=== PATIENT | female | born 1935 | race African-American/Black ===

== ENCOUNTER 2018-11-22 23:54 | Emergency (ER) | payer MEDICARE, SELFPAY ==
[2018-11-22 23:55] VITALS: BP 197/104; PULSE 75; RESP 22; TEMP 36.4; O2SAT 97; BMI 26.2
--- NOTE | 2018-11-22 23:57 | ED.RN ---
CALLED FOR EKG PER RN REQUEST, PULLED OLD EKGS FOR
--- NOTE | 2018-11-23 00:17 | EKG12_ITS ---
Test Reason : CP Blood Pressure : / mmHG Vent. Rate : 067 BPM Atrial Rate : 067 BPM P-R Int : 132 ms QRS Dur : 082 ms QT Int : 400 ms P-R-T Axes : 072 054 078 degrees QTc Int : 422 ms Normal sinus rhythm Possible Left atrial enlargement Septal infarct , age undetermined Abnormal ECG Confirmed by AVE BONILLA, CHRIS ([id number]), publications editor BALDO BERGMAN ([id number]) on 11/26/2018 6:22:34 AM Referred By: GRACE Confirmed By:CHRIS DORADO MD
--- NOTE | 2018-11-23 00:17 | RAD_ITS ---
HISTORY: CHEST PAIN FOR THE LAST TWO DAYS, INTRACTIBLE BURPING SINCE DINNER TIME EXAM: XR Chest 2 Views: COMPARISON: February 15, 2015 FINDINGS: # of images incl. paperwork: 2 Left IJ central venous catheter port has been removed. Calcific plaque within the aortic arch persists. Right paratracheal calcified granulomatous disease in lymph nodes is much more prominent on the current study. Some right upper lung benign calcified granulomas are more prominent. Pulmonary hyperexpansion remains. Lungs are clear. Heart is not enlarged. Bones are normal. Pulmonary vascularity is distinct. No effusions. RAD/Chest PA and Lateral IMPRESSION: No acute cardiopulmonary disease perceived. at 0156 Reported and signed by: Michele Schumacher MD Electronically Signed: Michele Schumacher MD at 1:55 EDT Tel , Service support ,
--- NOTE | 2018-11-23 00:17 | CT_ITS ---
HISTORY: CP X 2 DAY WITH BURPING, HX COLON CA, HTN, EMPHYSEMA TECHNIQUE: Helically acquired images were obtained of the abdomen and pelvis without oral or IV contrast. A radiation dose optimization technique was used for this scan. COMPARISON: None FINDINGS: # of images incl. paperwork: 437 LUNG BASES: Within the posterior medial aspect of the right lower lobe there is a bronchus that becomes suddenly occluded with soft tissue, likely fluid. There is some focal atelectasis and consolidation within the posterior medial right lower lobe peripheral to the occluded bronchus. Minimal scarring within the lingula and right middle lobe. Tiny pericardial effusion. Atherosclerotic plaque within a tortuous thoracic aorta CT abdomen: Bone island within the right hemisacrum Facet arthropathy and degenerative disc disease in lower lumbar spine. Bone island within the right ischial tuberosity. Bone island within the left and right acetabulum.. The gallbladder remains. Liver, spleen, pancreas, are normal. Slightly thickened and homogeneously enlarged adrenal glands The left kidney is normal. No nephrolithiasis or hydronephrosis. No ureteric stones. Left nephrolithiasis. Prominent left extrarenal collecting system. No left hydroureter. No left renal stones perceived.. The aorta is disease with atherosclerotic plaque without aneurysm. Is atherosclerotic plaque continues into the common iliac arteries. There is no intra-or extrahepatic biliary ductal dilatation. CT pelvis: No ascites is present. The uterus is atrophic.. The appendix has been resected. The bladder is mostly decompressed. Resection of the ascending colon with 3 anastomosis of the small bowel to the colon within the region of the hepatic flexure. Diverticulosis is mild. No evidence of diverticulitis. CT/Abdomen/Pelvis without Cont IMPRESSION: Atherosclerotic disease. Ascending colon resection. Nonobstructing left nephrolith with a prominent left extrarenal pelvis, without hydroureter or ureteric stone Prominent bilateral adrenal glands. This could be due to adrenal cortical insufficiency and adrenal hyperplasia. On this noncontrasted study, I see no evidence of metastatic disease to the liver. Individualized dose optimization techniques were used for this CT. at 0147 Reported and signed by: Michele Schumacher MD Electronically Signed: Michele Schumacher MD at 1:46 EDT Tel , Service support ,
--- NOTE | 2018-11-23 00:19 | ED.VIS.GEN ---
History of Present Illness Chief Complaint: Chest Pain Narrative: Patient is an 83-year-old female who presents with chief complaint of chest pain. She states she is been feeling it all week. She describes it as pressure-like. She rates it at 8 out of 10. It is under the left breast. She also reports excessive eructation. She reports shortness of breath with exertion such as walking up stairs only. She is not short of breath at rest. She also had some pain in her right arm. No nausea or vomiting. She is having normal bowel movements. She does have a history of colon cancer with prior partial colectomy. No history of coronary disease. She is treated for hypertension but denies diabetes or hyperlipidemia. No history of prior similar symptoms. Past Medical History - Allergies and Home Meds Allergies/Adverse Reactions: Allergies lisinopril Adverse Reaction (Verified 02/14/15 09:31) Other PERSISTANT COUGH Primary Care Physician: Grady Salmeron MD [NON-STAFF] - Past Medical History: - - Hypertension, colon cancer Surgical History: - - Tubal ligation., Partial colectomy Smoking Status: Former smoker Review of Systems All systems negative except as indicated General: Denies: Fever Cardiovascular: Reports: Chest pain Respiratory: Reports: Dyspnea Gastrointestinal: Reports: Abdominal pain. Denies: Nausea, Vomiting, Diarrhea Skin: Denies: Rash Neurological: Denies: Headache Physical Exam Vital Signs/Narrative: Vital Signs Temp Pulse Resp BP Pulse Ox 11/22/18 23:55 97.5 F L 75 22 H 197/104 H 97 General: Well nourished, Well developed Head: Normocephalic Eyes: Perrl, EOMI ENT: Moist mucous membranes Neck: Supple Cardiovascular: Regular rate, Regular rhythm Respiratory: No distress, CTA bilaterally Abdomen: Soft, Nontender, Nondistended Extremities: Nontender Skin: Normal color Neurological: Alert Psychological: Normal affect Diagnostic/Tx/Re-eval - Medical Decision Making EKG shows normal sinus rhythm at a rate of 67, no acute ischemic changes, unchanged from prior. Normal intervals. Normal axis. Laboratory studies including hepatic function, lipase, troponin all normal. Chest x-ray shows no acute process. CT of the abdomen and pelvis showed no acute process to explain the patient's symptoms. Given her description I suspect this is more likely related to a gastrointestinal pathology. Her pain is been constant for 1 week with an unchanged EKG and negative troponin. I doubt this is related to cardiac ischemia. Her heart score is 3. On further history she did note that her symptoms are often exacerbated by eating. She was given a GI cocktail here with some improvement of symptoms. We will start her on a proton pump inhibitor. She understands to return for new or worsening symptoms or if symptoms are not improving. I advised that she follow-up closely as an outpatient. Patient and family agreeable to this plan and the patient was discharged. ED Disposition - Plan for ED Patient: Referrals: Grady Salmeron MD [NON-STAFF] -
[2018-11-23] MEDS: Ondansetron ODT 4 MG Tablet PO (01:06)
[2018-11-23] MEDS: Morphine 4 MG/ML Syringe IV (01:06)
[2018-11-23 01:34] LABS: Absolute Lymphocyte Count 2.02 X10^3/ul (0.83-4.51); Absolute Neutrophil Count 1.7 X10^3/uL (2.0-7.7); Basophil# 0.01 X10^3/uL; Basophil% 0.2 % (0-1); Eosinophil# 0.06 X10^3/uL; Eosinophils% 1.5 % (0-5); Hematocrit 38.3 % (37-47); Hemoglobin 12.2 g/dl (12.0-15.0); Lymphocyte # 2.02 X10^3/ul (4.0); Mean Corp Hgb Conc 31.9 g/gl (32-36); Mean Corpuscular Hgb 23.6 pg (27.0-32.0); Mean Corpuscular Volume 74.1 fL (81-99); Mean Platelet Vol. 9.8 fl (6.2-12.0); Monocyte# 0.33 X10^3/uL; Neutrophil % 41.3 % (47-70); Platelet Count 176 K/mm3 (150-450); RBC Distribution Width CV 15.1 % (11.6-14.6); RBC Distribution Width SD 40.6 fl (35.1-43.9); Red Blood Count 5.17 M/mm3 (4.2-5.4); White Blood Count 4.1 K/mm3 (4.4-11.0)
[2018-11-23 01:37] LABS: Differential Indicated SCAN CRITERIA MET; POSITIVE COUNT YES; POSITIVE DIFFERENTIAL NO; POSITIVE MORPHOLOGY NO
[2018-11-23 01:47] LABS: ALB/GLOB Ratio 1.1 RATIO (0.9-2.4); AST(SGOT) 13 U/L (15-37); Alanine Aminotransfer ALT/SGPT 16 U/L (13-56); Albumin, Serum 3.9 g/dL (3.2-5.0); Alkaline Phosphatase 91 U/L (45-117); Anion Gap 8 (5-15); BUN 30 mg/dL (7-18); BUN/Creat Ratio 26.1 RATIO (10-20); Calcium,Total 8.8 mg/dL (8.5-10.1); Chloride 108 mmol/L (98-107); Creatinine, Serum 1.15 mg/dL (0.55-1.02); EST Glomerular Filtration Rate 48 mL/min (>60); Est Glom Filt Rate - Afr Amer 58 mL/min (>60); Globulin 3.6 g/dL (2.2-4.2); Glucose 82 mg/dL (74-106); Lipase 111 U/L (73-393); Potassium 3.7 mmol/L (3.5-5.1); Protein, Total 7.5 g/dL (6.4-8.2); Sodium Level 141 mmol/L (136-145)
[2018-11-23 01:53] LABS: Anisocytosis RARE; Microcytosis RARE; Platelet Estimate ADEQUATE (ADEQ); Platelet Morphology LARGE
[2018-11-23 02:02] VITALS: PULSE 61; RESP 12; O2SAT 98
[2018-11-23] MEDS: Mag Hydrox/Al Hydrox/Simeth 30 ML UDC PO (02:13)
--- NOTE | 2018-11-23 02:28 | DCINST.ED_ITS ---
ED Disposition - Plan for ED Patient: Disposition: [facility] Diagnosis: LUQ abdominal pain Instructions: ED Chest Pain Atypical Unkn Cause, ED Abdominal Pain Unkn Cause Prescriptions: Omeprazole [Prilosec] 20 mg PO DAILY #30 cap Referrals: Grady Salmeron MD [NON-STAFF] -
[2018-11-23 02:41] VITALS: BP 183/89; PULSE 61; RESP 20; O2SAT 98
== END 2018-11-23 02:43 | disposition home or self-care (01) ==
PROVIDERS: Emergency Provider Emergency Medicine; Family Provider Family Medicine; PCP Family Medicine
DX: R10.12 Left upper quadrant pain (principal); I10 Essential (primary) hypertension; Z90.49 Acquired absence of other specified parts of digestive tract; Z85.038 Personal history of other malignant neoplasm of large intestine; Z87.891 Personal history of nicotine dependence; Z79.899 Other long term (current) drug therapy
CPT/HCPCS: 71046; 74176; 80053; 83690; 84484; 85025; 93005; 96374; 99285; A4216

== ENCOUNTER → 2020-04-06 18:44 | Emergency (ER) | payer MEDICARE, SELFPAY ==
[2020-04-06 18:45] VITALS: BP 199/107; PULSE 70; RESP 18; TEMP 36.7; BMI 29.2
--- NOTE | 2020-04-06 19:04 | EKG12_ITS ---
Test Reason : CP Blood Pressure : / mmHG Vent. Rate : 086 BPM Atrial Rate : 086 BPM P-R Int : 158 ms QRS Dur : 078 ms QT Int : 416 ms P-R-T Axes : 074 053 081 degrees QTc Int : 497 ms Normal sinus rhythm Minimal voltage criteria for LVH, may be normal variant Prolonged QT Abnormal ECG Confirmed by HOLLY BONILLA, JESSICA ([id number]), map editor MATY CARNEY ([id number]) on 04/20/2020 9:46:14 A M Referred By: HAZEL Confirmed By:DORITA BARRERA MD
[2020-04-06] MEDS: Morphine 4 MG/ML Syringe IV (19:24)
[2020-04-06] MEDS: Ondansetron 4 MG/2 ML Vial IV (19:24)
--- NOTE | 2020-04-06 19:40 | RAD_ITS ---
STUDY: X-RAY CHEST REASON FOR EXAM: Female, 85 years old. LEFT SIDED CHEST PAIN TECHNIQUE: Frontal and lateral views COMPARISON: 2018. FINDINGS: The lungs are hyperaerated. Probable scarring in the right lower lobe. Normal size heart. Normal mediastinum and yolanda. Normal visualized pulmonary arteries. Calcified aortic arch and descending thoracic aorta. Normal visualized thoracic spine. Normal visualized ribs, clavicles, and shoulders. There is no demonstrated abnormality of the visualized soft tissue structures of the upper abdomen. RAD/Chest PA and Lateral IMPRESSION: Hyperaeration. Probable right lower lobe scarring. Electronically Signed: Avinash Singh DO at 20:00 EDT Tel [phone], Service support ,
[2020-04-06 19:43] LABS: Absolute Lymphocyte Count 2.08 X10^3/uL (0.83-4.51); Absolute Neutrophil Count 1.6 X10^3/uL (2.0-7.7); Basophil# 0.01 X10^3/uL; Basophil% 0.2 % (0-1); Eosinophil# 0.04 X10^3/uL; Hematocrit 41.6 % (37-47); Hemoglobin 12.6 g/dL (12.0-15.0); Lymphocyte # 2.08 X10^3/ul (4.0); Lymphocyte % 51.5 % (19-41); Mean Corp Hgb Conc 30.3 g/dL (32-36); Mean Corpuscular Volume 75.9 fL (81-99); Mean Platelet Vol. 10.7 fl (6.2-12.0); Monocyte# 0.26 X10^3/uL; Monocyte% 6.4 % (0-10); NRBC Flagged by Analyzer 0 % (0-5); Neutrophil # 1.64 X10^3/uL (2.7-7.7); Neutrophil % 40.7 % (47-70); Platelet Count 224 K/mm3 (150-450); RBC Distribution Width CV 15.1 % (11.6-14.6); RBC Distribution Width SD 41.2 fl (35.1-43.9); Red Blood Count 5.48 M/mm3 (4.2-5.4)
--- NOTE | 2020-04-06 19:56 | ED.DCSUM_ITS ---
History of Present Illness Chief Complaint: Chest Pain Informant: Patient, Significant Other Onset: Today, Hours Context: Sudden Onset Timing: Continuous, Waxes and wanes Quality: Pain with pleuritic component Location: Left-sided chest under breast Current Severity: Mild Maximum Severity: Severe Worsened by: Breathing and palpation and movement Relieved by: Nothing Associated Symptoms: Shortness of breath no other symptoms Narrative: Patient is an elderly woman who presents with acute onset of left-sided chest pain with pleuritic component. Pain got worse several hours prior to presentation. She denies history of VTE. She denies leg pain, swelling discoloration. She denies any recent infectious symptoms and specifically upper respiratory symptoms. She denies rhinorrhea, congestion or postnasal drainage. Denies throat pain. Denies ringing in ears, decreased hearing or drainage from ears. She denies cough. She does report shortness of breath. She does have dyspnea on exertion. She denies orthopnea or PND. She denies nausea, vomiting diarrhea. Denies black or maroon stool. She denies any other symptoms. Prior similar symptoms: No Recent Illness/Hospitalization: No - Past Medical History (1) History of hypertension Status: Acute Past Medical History - Allergies and Home Meds Allergies/Adverse Reactions: Allergies lisinopril Adverse Reaction (Verified 04/06/20 18:54) Other PERSISTANT COUGH Primary Care Physician: Joel Beckman MD [Primary Care Provider] - Prior records reviewed: Yes Surgical History: - - Tubal ligation., Partial colectomy Lives: Spouse/ Significant Other Smoking Status: Former smoker Alcohol: None Drugs: None Review of Systems General: Denies: Chills, Fever, Malaise, Subjective, Sweats, Weight loss ENT: Denies: Rhinorrhea, Sore throat Cardiovascular: Reports: Chest pain. Denies: Palpitations, Heart racing, -, - Respiratory: Reports: Dyspnea, Dyspnea on exertion. Denies: Cough, Sputum, Orthopnea, Paroxysmal nocturnal dyspnea, -, - Gastrointestinal: Denies: Abdominal pain, Nausea, Vomiting, Diarrhea, Melena, Hematochezia Genitourinary: Denies: Dysuria, Hematuria, Frequency Musculoskeletal: Denies: Myalgias, Arthralgias, Neck pain, Back pain, Swelling, Extremity Pain Skin: Denies: Rash, Wounds Neurological: Denies: Headache, Weakness, Numbness Endocrine: Denies: Polyuria, Polydipsia Hematologic: Denies: Easy bruising, Easy bleeding Allergy: Denies: Uticaria Physical Exam Vital Signs/Narrative: Vital Signs Temp Pulse Resp BP 04/06/20 18:45 98.0 F 70 18 199/107 H Inital Vital Signs reviewed: Yes General: Well nourished, Well developed, Acute Distress Head: Normocephalic, Atraumatic Eyes: Perrl, EOMI. Negative for: Pale conjunctiva, Scleral icterus ENT: No rhinorrhea, TM's clear. Negative for: Nasal congestion, Sinus tenderness Neck: Supple, Nontender, No lymphadenopathy, No JVD Cardiovascular: Regular rate Respiratory: No distress, CTA bilaterally, Chest tenderness - Patient does have a painful patient under left breast. There is no crepitus subcutaneous air. There is no rash or lesions to suggest herpes varicella-zoster. Abdomen: Soft, Nontender, Nondistended, Normal bowel sounds, No masses Rectal: Deferred Back: Nontender, Normal Inspection Extremities: Nontender, No edema, - - There is no asymmetry, swelling, discoloration, leg vein distention, palpable cords or tenderness along the distribution of the deep venous system. Skin: Normal color, No rash Neurological: Alert, Oriented x3, Cranial nerves II-XII grossly intact, Normal Strength, Normal Sensation Psychological: Normal affect, Normal Mood Diagnostic/Tx/Re-eval Impressions Chest X-Ray 04/06/20 19:40 IMPRESSION: Hyperaeration. Probable right lower lobe scarring. Electronically Signed: Avinash Singh DO at 20:00 EDT Tel [phone], Service support , Chest CTA 04/06/20 21:16 IMPRESSION: No demonstrated pulmonary embolism or arterial dissection. Hyperaeration with emphysematous changes. Right lower lobe infiltrate. Interstitial prominence. Left renal stone. Pericardial thickening. Electronically Signed: Avinash Singh DO at 21:53 EDT Tel [phone], Service support , 04/06/20 19:40 Chest PA and Lateral [RAD] Stat 04/06/20 21:16 CTA Chest W/WO Contrast [CT] Stat Laboratory Results 04/06/20 04/06/20 04/06/20 19:35 19:35 19:35 WBC 4.0 L RBC 5.48 H Hgb 12.6 Hct 41.6 MCV 75.9 L MCH 23.0 L MCHC 30.3 L RDW Std Deviation 41.2 RDW Coeff of Aylin 15.1 H Plt Count 224 MPV 10.7 Immature Gran % (Auto) 0.200 Neut % (Auto) 40.7 L Lymph % (Auto) 51.5 H [place] % (Auto) 6.4 Eos % (Auto) 1.0 Baso % (Auto) 0.2 Absolute Neuts (auto) 1.6 L Absolute Lymphs (auto) 2.08 Nucleated RBC % 0 D-Dimer Quant (PE/DVT) 0.95 H* Sodium 139 Potassium 4.9 Chloride 109 H Carbon Dioxide 24.0 Anion Gap 6 BUN 26 H Creatinine 1.19 H Estim Creat Clear Calc 34.83 Est GFR (MDRD) Af Amer 56 L Est GFR (MDRD) Non-Af 46 L BUN/Creatinine Ratio 21.8 H Glucose 99 Calcium 9.0 Troponin I < 0.015 - EKG Initial EKG Interpretation: Sinus Rhythm - Sinus rhythm with a ventricular rate 86. VA interval 158. QRS duration 78 ms. QT duration 416 ms with a QTC of 497. [place] is normal. The QT is prolonged. There is evidence of LVH by voltage criteria. - Medical Decision Making Itchy, chest x-ray appropriate labs were obtained to rule out cardiac etiology versus noncardiac. Noncardiac etiology would include pulmonary embolus, pleurisy, pneumonia and pneumothorax. CT reveals infiltrate right lower lobe. This may represent Covid. Covid test was sent. Since vitals are normal and she is not hypoxic we will treat with Augmentin and azithromycin for community-acquired pneumonia and she was given a dose of Decadron. ED Disposition - Plan for ED Patient: Disposition: Home or Assisted Living Diagnosis: Infiltrate of lower lobe of right lung present on imaging study, Pleurisy, Suspected 2019 novel coronavirus infection Instructions: ED PNEUMONITIS Adult, ED Chest Pain Pleurisy Prescriptions: Amox/Clavulanate Tablet [Augmentin Tablet] 875 mg PO Q12H #14 tab Prescription Printed Azithromycin [Zithromax Z-Sven] 250 mg PO UD #1 box Prescription Printed Referrals: Joel Beckman MD [Primary Care Provider] - 3-5 Days if not improving
[2020-04-06 20:04] VITALS: BP 199/98; PULSE 60; RESP 15; O2SAT 100
[2020-04-06 20:04] LABS: Anion Gap 6 (5-15); BUN 26 mg/dL (7-18); BUN/Creat Ratio 21.8 RATIO (10-20); Chloride 109 mmol/L (98-107); Creatinine, Serum 1.19 mg/dL (0.55-1.02); EST Glomerular Filtration Rate 46 mL/min (>60); Est Glom Filt Rate - Afr Amer 56 mL/min (>60); Estimated Creatinine Clearance 34.83 ml/min; Glucose 99 mg/dL (74-106); Potassium 4.9 mmol/L (3.5-5.1); Sodium Level 139 mmol/L (136-145)
[2020-04-06 20:05] LABS: D-Dimer Quantitative (DVT/PE) 0.95 FEU/ug/m (0.27-0.49)
[2020-04-06 21:10] VITALS: BP 196/95; PULSE 88; RESP 18; O2SAT 100
--- NOTE | 2020-04-06 21:16 | CT_ITS ---
STUDY: CTA CHEST REASON FOR EXAM: Female, 85 years old. CHEST PAIN UNDER LEFT BREAST ALL DAY. HX OF COLON CA. PT STATES SHE HAS A LUNG MASS RADIATION DOSAGE (If Supplied By Facility): CTDIvol = ( 10.95 ) mGy, DLP = ( 353.72 ) mGycm TECHNIQUE: The examination was performed with the intravenous administration of IV 100mL Isovue-370. Post-processing of the angiographic images was performed, with multiplanar reformation and 3D reconstruction. Individualized dose optimization techniques were used for this CT. COMPARISON: 11/23/2018 FINDINGS: Normal enhancement of the main pulmonary artery and right and left pulmonary arteries. Normal enhancement of the bilateral peripheral pulmonary arteries. There is no demonstrated pulmonary embolism. Calcified thoracic aorta and visualized great vessels. There is no demonstrated aortic dissection. Mild pericardial thickening. Normal mediastinum. Normal hilar regions. Normal visualized trachea and bronchi. The lungs are hyperaerated with emphysematous changes. Mild interstitial prominence. Right lower lobe infiltrate. Normal pleura. Normal chest wall structures. Normal osseous structures. 2 mm left renal stone. CT/CTA Chest W/WO Contrast IMPRESSION: No demonstrated pulmonary embolism or arterial dissection. Hyperaeration with emphysematous changes. Right lower lobe infiltrate. Interstitial prominence. Left renal stone. Pericardial thickening. Electronically Signed: Avinash Singh DO at 21:53 EDT Tel [phone], Service support ,
[2020-04-06] MEDS: Amox/Clavulanate 875 MG Tablet PO (22:29)
[2020-04-06] MEDS: Azithromycin 250 MG Tablet 500 MG PO (22:30)
[2020-04-06] MEDS: dexAMETHasone 4 MG Tablet 8 MG PO (22:30)
== END | disposition home or self-care (01) ==
LOC: ED 19:59
PROVIDERS: Emergency Provider Emergency Medicine; PCP Family Medicine
DX: R09.1 Pleurisy (principal); I10 Essential (primary) hypertension; Z87.891 Personal history of nicotine dependence; Z79.82 Long term (current) use of aspirin
CPT/HCPCS: 71046; 71275; 80048; 84484; 85025; 85379; 87635; 93005; 96374; 96375; 99281; 99285; Q9967; A4216; J2405; U0003

== ENCOUNTER 2022-11-14 06:01 | Inpatient (IN) | payer MEDICARE, SELFPAY ==
[2022-11-14] VITALS (10 sets, daily range): BP systolic 105–161; BP diastolic 66–92; PULSE 73–104; RESP 18–24; TEMP 36.6–38.3; O2SAT 91–99; BMI 29.4; BMI 28.1
--- NOTE | 2022-11-14 06:10 | EKG12_ITS ---
Test Reason : CP Blood Pressure : / mmHG Vent. Rate : 096 BPM Atrial Rate : 096 BPM P-R Int : 128 ms QRS Dur : 072 ms QT Int : 344 ms P-R-T Axes : 074 070 075 degrees QTc Int : 434 ms Normal sinus rhythm Nonspecific ST abnormality Abnormal ECG Confirmed by GIANCARLO BONILLA, THIEN ([id number]), medical transcription editor MATY CARNEY ([id number]) on 11/18/2022 10:32:01 AM Referred By: ALYSE Confirmed By:THIEN MONDRAGON MD
--- NOTE | 2022-11-14 06:12 | ED.VIS.CHEST ---
HPI History of Present Illness Chief Complaint: Chest Pain Informant: patient Onset/Context/Timing Onset: Days (2 days) Activity at onset: gradual Timing: Waxes and wanes Quality: Positive for Pain Location: Left Chest Current Severity: Mild Maximum Severity: Moderate Worsened By: Movement of Torso and Palpation Narrative Narrative: Patient presents secondary to left-sided chest pain. She is been having pain for the past 2 days and it waxes and wanes. She denies any injury or change in activity prior to onset. She describes the area of pain is just under her left breast over the anterior lower ribs. She states pain is worse when she moves. She does not feel short of breath. She states she has had similar pain in the past and was told it was gas pains. She tried taking some gas pills without improvement. She states she finally called 911 this morning because she could not get the pain to go away. She did not take any medication prior to arrival. [facility] Medical History History of hypertension Home Medications multivitamin with folic acid 400 mcg tablet (Thera) 1 tab PO DAILY 05/12/13 [History Last Taken 05/11/13] amlodipine 5 mg tablet 5 mg PO DAILY 02/14/15 [History Last Taken 02/15/15 07:00] aspirin 81 mg tablet,delayed release 81 mg PO DAILY@0800 02/14/15 [History Last Taken Unknown] loratadine 10 mg tablet (Allergy Relief (loratadine)) 10 mg PO DAILY 02/14/15 [History Last Taken Unknown] omeprazole 20 mg capsule,delayed release 20 mg PO DAILY #30 caps 11/23/18 [Rx Last Taken Unknown] amoxicillin 875 mg-potassium clavulanate 125 mg tablet 875 mg PO Q12H #14 tabs 04/06/20 [Rx Last Taken Unknown] azithromycin 250 mg tablet 250 mg PO UD ##1 04/06/20 [Rx Last Taken Unknown] Allergy/AdvReac Type Severity Reaction Status Date / Time lisinopril AdvReac Other Verified 11/14/22 06:10 Social History Smoking Status: Former smoker ROS ROS ED Constitutional Constitutional ED: Denies chills or fever(s) Eyes Eyes: Denies change in vision or discharge from eye(s) ENT ENT ED: Denies discharge from eye(s), rhinorrhea or sore throat Cardiovascular Cardiovascular: Reports chest pain; Denies palpitations Respiratory/Chest Respiratory/Chest: Denies cough or dyspnea Gastrointestinal Gastrointestinal: Denies abdominal pain, nausea or vomiting Genitourinary Genitourinary ED: Denies dysuria Musculoskeletal Musculoskeletal: Denies back pain or extremity pain Integumentary Denies Abrasions or rash Neurologic Neurologic: Denies headache(s) or weakness Allergic/Immunologic Allergic/Immunologic ED: Denies lip swelling or urticaria EXAM Physical Exam Const Vital Signs: 11/14/22 06:05 11/14/22 06:08 11/14/22 06:42 Temperature 98.2 F Temperature Source Temporal Pulse Rate 97 Respiratory Rate 24 H Respiratory Effort Normal Blood Pressure 161/92 H Blood Pressure Mean 115 Pulse Ox 93 Oxygen Delivery Method Room Air Room Air Positive well nourished and well developed General Appearance ED: well developed HEENT Reports normocephalic and head/scalp atraumatic Eyes PERRL and EOMs intact bilaterally Neck supple Chest Wall inspection of chest normal Chest Narrative: Reproducible chest wall pain with palpation over the left anterior lower ribs. No crepitus. Resp normal respiratory effort and clear to auscultation bilaterally Cardio regular rate and regular rhythm GI normal to inspection, nondistended, normoactive bowel sounds Palpation: soft Extremity normal to inspection Neuro oriented x3 and no sensory deficits noted Sensorium / Orientation: alert Motor Exam: strength 5/5 throughout Psych mental status grossly normal Skin no rashes or lesions noted Heart Score History: Slightly/Non-Suspicious ECG: Normal Age: >/= 65 years Risk Factors: 1 or 2 Risk Factors Troponin: >/=3 x Normal Limit Score: 5 MDM MDM MDM Narrative Medical decision making narrative: Patient given aspirin on arrival. She is also given Tylenol and a Lidoderm patch as her pain seems to be musculoskeletal in nature. She is placed on monitoring tech. EKG obtained to evaluate for cardiac arrhythmia/ischemia. Chest x-ray obtained to evaluate for acute lung pathology, cardiac size, or mediastinal abnormality. Labwork obtained to evaluate for leukocytosis, anemia, and electrolyte derangement. History & Record Review Discussion w/independent historian: EMS personnel Lab Data Attestation: I reviewed the patient's lab results. Labs: Laboratory Results - last 24 hr 11/14/22 11/14/22 06:37 06:37 WBC 8.3 RBC 5.26 Hgb 12.0 Hct 39.3 MCV 74.7 L MCH 22.8 L MCHC 30.5 L RDW Std Deviation 40.2 RDW Coeff of Aylin 14.9 H Plt Count 123 L MPV 11.6 Immature Gran % (Auto) 0.600 Neut % (Auto) 83.4 H Lymph % (Auto) 9.0 L Fisher % (Auto) 6.6 Eos % (Auto) 0.0 Baso % (Auto) 0.4 Absolute Neuts (auto) 6.9 Absolute Lymphs (auto) 0.75 L Nucleated RBC % 0 Differential Comment SCANNED Platelet Estimate SLT DEC Sodium 132 L Potassium 4.4 Chloride 103 Carbon Dioxide 19.0 L Anion Gap 10 BUN 20 H Creatinine 1.38 H Estim Creat Clear Calc 30.07 Est GFR (MDRD) Af Amer 47 L Est GFR (MDRD) Non-Af 39 L BUN/Creatinine Ratio 14.5 Glucose 118 H Calcium 8.9 Troponin I High Sens 418 H* Radiography Chest X-Ray - ED: 1 View, Read by ED Physician and - (Wedge-shaped density along the left lateral lung. This appears new when compared to prior study.) Diagnostic Testing: Clinical Impression(s) from Imaging Studies Chest X-Ray 11/14/22 06:45 IMPRESSION: 1. Moderate wedge-shaped juxtapleural parenchymal opacity in the left lateral mid lung at the level of of the hilum, new since November 14, 2022. Considerations include infarct, pneumonia and mass. 2. Enhanced chest CT is recommended for further evaluation. Consider PE protocol CTA if it is thought to be indicated. 3. Previously seen linear irregular opacity in the right medial lower lung field is similar to April 06, 2020, there was increased opacity around bronchovascular structures on the prior CT exam the same day. Electronically Signed: Yani Kramer MD at 7:15 EDT , ADDENDUM: 11/14/22 8770 IMPRESSION: 1. Moderate wedge-shaped juxtapleural parenchymal opacity in the left lateral mid lung at the level of of the hilum, new since November 14, 2022. Considerations include infarct, pneumonia and mass. 2. Enhanced chest CT is recommended for further evaluation. Consider PE protocol CTA if it is thought to be indicated. 3. Previously seen linear irregular opacity in the right medial lower lung field is similar to April 06, 2020, there was increased opacity around bronchovascular structures on the prior CT exam the same day. N.B. : The above Results were Read Back by Yani Kramer MD to Amy Simpson MD, and understanding confirmed on 11/14/2022 07:23:16 (ET). Electronically Signed: Yani Kramer MD at 7:15 EDT , EKG Initial EKG: Attestation: I personally reviewed and interpreted this EKG as follows: Interpretation: Sinus Rhythm (Sinus at [address] depression in lead V5 and V6.) Treatment and Re-Evaluation :: On repeat evaluation patient is resting comfortably. She denies chest pain at this time. CBC reveals normal white count and differential. Hemoglobin is normal at 12. Chemistry studies reveal a BUN of 20 and a creatinine of 1.38. Troponin is elevated at 418. Chest x-ray per my interpretation reveals a wedge-shaped density along the lateral left chest wall. Radiology interpretation is reviewed. Patient sent for CTA of the chest. 2-hour repeat troponin will be ordered. Patient be signed out to oncoming physician pending CT results and hospital admission. Discharge Plan Triage Chief Complaint: Chest Pain ED Provider: Amy Simpson Dx/Rx/DC Orders Clinical Impression: Non-ST elevation [place] (NSTEMI) Prescriptions: No Action multivitamin with folic acid [Thera] 1 TABLET tablet 1 tab PO DAILY Label Comments: MINERAL SUPPLEMENT amlodipine 5 MG tablet 5 mg PO DAILY aspirin 81 MG tablet 81 mg PO DAILY@0800 loratadine [Allergy Relief (loratadine)] 10 MG tablet 10 mg PO DAILY omeprazole 20 MG capsule 20 mg PO DAILY Qty: 30 0RF azithromycin 250 MG tablet 250 mg PO UD Qty: 1 0RF Rx Instructions: TAKE 2 TABLETS 1ST DAY THEN 1 TABLET DAILY FOR NEXT 4 DAYS. amoxicillin-pot clavulanate 875 MG tablet 875 mg PO Q12H Qty: 14 0RF Primary Care Provider: Joel Beckman Referrals: Joel Beckman MD [Primary Care Provider] - Disposition Disposition: Acute Care [facility]
[2022-11-14] MEDS: Aspirin 81 MG TAB.CHEW 324 MG PO (06:33)
[2022-11-14] MEDS: Lidocaine 5% Patch 1 PATCH TOPICAL (06:33)
[2022-11-14] MEDS: Acetaminophen 325 MG Tablet 650 MG PO ×2 (06:33→17:49)
--- NOTE | 2022-11-14 06:42 | ED.RN ---
Multiple failed IV stick attempts by [address] Simpson notified.
[2022-11-14 06:44] LABS: Absolute Lymphocyte Count 0.75 X10^3/uL (0.83-4.51); Absolute Neutrophil Count 6.9 X10^3/uL (2.0-7.7); Basophil# 0.03 X10^3/uL; Basophil% 0.4 % (0-1); Hematocrit 39.3 % (37-47); Lymphocyte # 0.75 X10^3/ul (0.83-4.51); Mean Corp Hgb Conc 30.5 g/dL (32-36); Mean Corpuscular Hgb 22.8 pg (27.0-32.0); Mean Corpuscular Volume 74.7 fL (81-99); Mean Platelet Vol. 11.6 fl (6.2-12.0); Monocyte# 0.55 X10^3/uL; Monocyte% 6.6 % (0-10); NRBC Flagged by Analyzer 0 % (0-5); Neutrophil # 6.92 X10^3/uL (2.7-7.7); Neutrophil % 83.4 % (47-70); POSITIVE COUNT YES; Platelet Count 123 K/mm3 (150-450); RBC Distribution Width CV 14.9 % (11.6-14.6); RBC Distribution Width SD 40.2 fl (35.1-43.9); Red Blood Count 5.26 M/mm3 (4.2-5.4); White Blood Count 8.3 K/mm3 (4.4-11.0)
--- NOTE | 2022-11-14 06:45 | RAD_ITS ---
We are attempting to reach an attending provider to discuss findings. An addendum with communication details will be sent when the communication is complete. EXAM: XR CHEST, 1 VIEW CLINICAL INDICATION: chest pain TECHNIQUE: Frontal view of the chest. COMPARISON: April 06, 2020. FINDINGS: LUNGS AND PLEURAL SPACES: There is a stable linear streaky opacity at the medial right lower lung field partially overlying the heart in the right infrahilar region. Persistent mild increased lucency in the lung apices, presumed COPD. HEART: Stable normal heart size considering portable technique. MEDIASTINUM: Central airways and mediastinal contour are unremarkable. BONES/JOINTS: There is a new wedge-shaped juxtapleural opacity at the lateral left mid lung field measuring roughly 6.6 cm x 3.6 cm. Considerations include infarct, pneumonia and postobstructive pneumonitis. No obvious central airway obstruction. SOFT TISSUES: Unremarkable. VASCULATURE: Peripheral calcification of the aortic arch and mildly irregular contour of the descending thoracic aorta are stable from 2019. RAD/Chest 1 View (Portable) IMPRESSION: 1. Moderate wedge-shaped juxtapleural parenchymal opacity in the left lateral mid lung at the level of of the hilum, new since November 14, 2022. Considerations include infarct, pneumonia and mass. 2. Enhanced chest CT is recommended for further evaluation. Consider PE protocol CTA if it is thought to be indicated. 3. Previously seen linear irregular opacity in the right medial lower lung field is similar to April 06, 2020, there was increased opacity around bronchovascular structures on the prior CT exam the same day. Electronically Signed: Yani Kramer MD at 7:15 EDT ,
[2022-11-14 07:08] LABS: Differential Comment SCANNED; Differential Indicated SCAN CRITERIA MET; Platelet Estimate SLT DEC (ADEQ)
[2022-11-14 07:13] LABS: Anion Gap 10 (5-15); BUN 20 mg/dL (7-18); BUN/Creat Ratio 14.5 RATIO (10-20); Calcium,Total 8.9 mg/dL (8.5-10.1); Chloride 103 mmol/L (98-107); Creatinine, Serum 1.38 mg/dL (0.55-1.02); EST Glomerular Filtration Rate 39 mL/min (>60); Est Glom Filt Rate - Afr Amer 47 mL/min (>60); Estimated Creatinine Clearance 30.07 ml/min; Glucose 118 mg/dL (74-106); Potassium 4.4 mmol/L (3.5-5.1); Sodium Level 132 mmol/L (136-145); Troponin-I HS 418 pg/mL (3.0-54.0)
--- NOTE | 2022-11-14 07:21 | CT_ITS ---
HISTORY: pulmonary embolism. TECHNIQUE: CT angiogram of the chest was performed after the intravenous administration of 100 mL Isovue-370. Post-processing of the angiographic images was performed with multiplanar reformation and 3D reconstruction. Individualized dose optimization techniques were used for this CT. 1067 images. COMPARISON: XR same day, CTA 04/06/2020. FINDINGS: CENTRAL AIRWAYS: Patent with minimal dependent material in the trachea. LUNGS: Mild emphysema with right lower lobe opacity similar to prior. Moderate alveolar opacities in the periphery of the left upper lobe, lingula, and superior segment of the left lower lobe. PLEURA: Mild left pleural effusion. HEART/PERICARDIUM: Heart within normal limits in size. Mild pericardial effusion. PULMONARY ARTERIES: No filling defect. AORTA/VESSELS: No thoracic aortic aneurysm or dissection flap. Mild atherosclerosis. MEDIASTINUM/SUSY: 1 x 1.7 cm AP window lymph node. Mildly enlarged left hilar and subcarinal lymph nodes also seen. Small calcified right hilar lymph nodes. OSSEOUS STRUCTURES: Intact. UPPER ABDOMEN: Stable left adrenal nodularity. Calcified hepatic granuloma. CT/CTA Chest W/WO Contrast IMPRESSION: No evidence of pulmonary embolism. Moderate consolidation in the periphery of the left lung, concerning for pneumonia in the acute setting. Recommend follow-up to resolution. Mild left parapneumonic effusion and mild lymphadenopathy, likely reactive. Mild pericardial effusion. Mild pulmonary emphysema with chronic right lower lobe opacity, likely scarring and postinflammatory change. Electronically Signed: Iris Delcid MD at 8:14 EDT ,
[2022-11-14] MEDS: Ceftriaxone 1 GM/50 ML BAG IV (09:06)
[2022-11-14] MEDS: 0.9% Normal Saline 1,000 ML 150 ML IV (09:06)
--- NOTE | 2022-11-14 09:06 | PCM.HP.STD ---
HPI - General General Date of Admission: 11/14/22 Date of Service: 11/14/22 Chief Complaint: Chest Pain HPI Narrative DEV CONNOLLY, is a 87 F who presented to the emergency department at [facility] on 11/14/2022 with a chief complaint of chest pain. It started more of a pleuritic pain on the left side of her chest underneath her breast with no radiation, associated diaphoresis, nausea or vomiting. She did state prior to it she felt some indigestion and gas pains. She tried to take some gas pills without any improvement so she came to the emergency department because the pain would not go away. She has never had a history of cardiac issues. She does not know of anybody in her family that had any cardiac issues and her only baseline risk factor is hypertension and history of tobacco abuse. The patient also does have a history of chest radiation which was done for metastatic colon cancer remotely. Per chart review it appears that she was diagnosed with metastatic colon cancer in 2014 so I suspect her radiation was at least 6 to 7 years ago. Her chest pain was not reproducible with palpation of the chest wall or movement at the time of my examination however she did report some increased pain with movement prior to arrival. Vital signs at time of presentation showed temperature of 98.2, blood pressure 161/92, heart rate 67, respiratory rate was 24 and oxygen saturation was anywhere between 93 and 99% on room air. Her CBC was unimpressive with a normal hemoglobin however there was microcytosis present and she had mild thrombocytopenia with a platelet count of 123,000. Chemistry panel showed mild hyponatremia at 132, her BUN and serum creatinine were elevated at 20 and 1.38 respectively however this appears to be close to her baseline. Procalcitonin was 0.13. Her initial troponin was 418. Chest x-ray was performed and was suggestive of a moderate wedge-shaped opacity in the left lateral midlung for which a CT a of her chest was performed. CTA of her chest showed no evidence of pulmonary embolism however moderate consolidation in the periphery of the left lung concerning for pneumonia as well as a mild left parapneumonic effusion and mild lymphadenopathy. She was stable with regards to the pneumonia findings so she could be sent home with regards to this however with her troponin elevation we will admit her and have cardiology evaluate her. [facility] Medical History (Updated 11/14/22 @ 16:[address] Dona Garcia DO) History of hypertension Malignant neoplasm of colon metastatic to lung Pneumonia Stage 3b chronic kidney disease (CKD) Home Medications multivitamin with folic acid 400 mcg tablet (Thera) 1 tab PO DAILY 05/12/13 [History Last Taken 05/11/13] amlodipine 5 mg tablet 5 mg PO DAILY 02/14/15 [History Last Taken 02/15/15 07:00] loratadine 10 mg tablet (Allergy Relief (loratadine)) 10 mg PO DAILY 02/14/15 [History Last Taken Unknown] Allergy/AdvReac Type Severity Reaction Status Date / Time lisinopril AdvReac Other Verified 11/14/22 06:10 no significant family history Surgical History (Updated 11/14/22 @ 16:[address] Dona Garcia DO) H/O hemicolectomy H/O tubal ligation no surgical history Social History (Updated 11/14/22 @ 16:[address] Dona Garcia DO) household members: family housing: house Smoking Status: Former smoker how long ago did patient quit smoking: Quit 7 years ago smoked 1 pack a day for a long time alcohol intake: never substance use type: does not use Vital Signs Vital Signs Vital Signs: 11/14/22 06:05 11/14/22 06:08 11/14/22 06:42 Temperature 98.2 F Temperature Source Temporal Pulse Rate 97 Respiratory Rate 24 H Respiratory Effort Normal Blood Pressure 161/92 H Blood Pressure Mean 115 Pulse Ox 93 Oxygen Delivery Method Room Air Room Air 11/14/22 07:59 11/14/22 08:12 Temperature 99 F Temperature Source Temporal Pulse Rate 86 88 Respiratory Rate 18 18 Respiratory Effort Blood Pressure 127/83 H 105/74 Blood Pressure Mean 97 84 Pulse Ox 99 96 Oxygen Delivery Method Weight Weight: 87.7 kg Body Mass Index (BMI) 29.4 Physical Exam Const alert, oriented x3, no apparent distress and well nourished Constitutional Narrative: Very pleasant, elderly, -[place]ian female, overweight, sitting up in bed, daughter at bedside, patient appears comfortable and nontoxic General Appearance: cooperative HEENT normocephalic, head/scalp atraumatic, hearing grossly normal bilaterally and moist oral mucous membranes HEENT Narrative: Dentition is poor, Mallampati is 3, no thrush Eyes PERRL, EOMs intact bilaterally and conjunctivae normal Eyes Narrative: No scleral icterus Neck no lymphadenopathy, supple, no JVD and no carotid bruits Resp normal respiratory effort, no retractions, no use of accessory muscles and No clear to auscultation bilaterally Resp Narrative: Diffusely diminished, Crackles noted in left lower and midlung field Auscultation: crackles; Negative for rhonchi or wheezes Cardio regular rate, regular rhythm, S1 normal heart sound, S2 normal heart sound, no rub, no gallops and no clicks Cardio Narrative: No reproducible pain with anterior palpation of the chest wall in the area where she is having pain on presentation, no rashes noted GI normal to inspection, nondistended, normoactive bowel sounds, soft to palpation and non-tender Extremity no clubbing, cyanosis or edema Neuro oriented x3, moves all extremities and no focal motor deficits Speech: speech normal Psych affect normal Psych Narrative: Properly interactive Results Lab / Micro Data Result Diagrams: 11/14/22 06:37 11/14/22 06:37 Labs: Laboratory Results - last 24 hr 11/14/22 06:37: WBC 8.3, RBC 5.26, Hgb 12.0, Hct 39.3, MCV 74.7 L, MCH 22.8 L, MCHC 30.5 L, RDW Std Deviation 40.2, RDW Coeff of Aylin 14.9 H, Plt Count 123 L, MPV 11.6, Immature Gran % (Auto) 0.600, Neut % (Auto) 83.4 H, Lymph % (Auto) 9.0 L, Evans % (Auto) 6.6, Eos % (Auto) 0.0, Baso % (Auto) 0.4, Absolute Neuts (auto) 6.9, Absolute Lymphs (auto) 0.75 L, Nucleated RBC % 0, Differential Comment SCANNED, Platelet Estimate SLT 11/14/22 06:37: Sodium 132 L, Potassium 4.4, Chloride 103, Carbon Dioxide 19.0 L, Anion Gap 10, BUN 20 H, Creatinine 1.38 H, Estim Creat Clear Calc 30.07, Est GFR (MDRD) Af Amer 47 L, Est GFR (MDRD) Non-Af 39 L, BUN/Creatinine Ratio 14.5, Glucose 118 H, Calcium 8.9, Troponin I High Sens 418 H* Radiology Impression Chest X-Ray 11/14/22 06:45 IMPRESSION: 1. Moderate wedge-shaped juxtapleural parenchymal opacity in the left lateral mid lung at the level of of the hilum, new since November 14, 2022. Considerations include infarct, pneumonia and mass. 2. Enhanced chest CT is recommended for further evaluation. Consider PE protocol CTA if it is thought to be indicated. 3. Previously seen linear irregular opacity in the right medial lower lung field is similar to April 06, 2020, there was increased opacity around bronchovascular structures on the prior CT exam the same day. Electronically Signed: Yani Kramer MD at 7:15 EDT , ADDENDUM: 11/14/22 0730 IMPRESSION: 1. Moderate wedge-shaped juxtapleural parenchymal opacity in the left lateral mid lung at the level of of the hilum, new since November 14, 2022. Considerations include infarct, pneumonia and mass. 2. Enhanced chest CT is recommended for further evaluation. Consider PE protocol CTA if it is thought to be indicated. 3. Previously seen linear irregular opacity in the right medial lower lung field is similar to April 06, 2020, there was increased opacity around bronchovascular structures on the prior CT exam the same day. N.B. : The above Results were Read Back by Yani Kramer MD to Amy Simpson MD, and understanding confirmed on 11/14/2022 07:23:16 (ET). Electronically Signed: Yani Kramer MD at 7:15 EDT , Chest CTA 11/14/22 07:21 IMPRESSION: No evidence of pulmonary embolism. Moderate consolidation in the periphery of the left lung, concerning for pneumonia in the acute setting. Recommend follow-up to resolution. Mild left parapneumonic effusion and mild lymphadenopathy, likely reactive. Mild pericardial effusion. Mild pulmonary emphysema with chronic right lower lobe opacity, likely scarring and postinflammatory change. Electronically Signed: Iris Delcid MD at 8:14 EDT , Assessment & Plan Assessment/Plan (1) Non-ST elevation [place] (NSTEMI): PLAN: Plan NSTEMI -Suspect type II related to pneumonia -Cycle cardiac enzymes -Start aspirin -Per discussion with cardiology we will check echocardiogram and go from there -Anticipate medical management and outpatient follow-up -Check lipid panel -Start atorvastatin Pneumonia -Patient without cough or fever however CAT scan shows large infiltrate and bronchiectasis -Aggressive pulmonary toilet with incentive spirometry and Acapella -Scheduled DuoNebs and as needed albuterol -We will start Zosyn for now to cover for Pseudomonas with current appearance -Not requiring oxygen -We will likely be able to be discharged home tomorrow if no further cardiac work-up needs to be pursued on oral Levaquin -Follow-up appointment with pulmonary medicine has been made as she will need follow-up imaging in 4 to [address] of her chest Hypertension -Continue home amlodipine CKD stage IIIb -When compared to recent data her serum creatinine appears to be stable and at baseline -Repeat BMP in a.m. History of metastatic colon cancer -Diagnosed in 2014 -Underwent to chemotherapy sessions but did not tolerate well -Underwent extensive radiation at [facility] Main [facility] -Had metastatic disease to her right lung at that time -We will check CEA with current findings in the chest Seasonal allergies -Continue loratadine DVT prophylaxis -Patient was given therapeutic Lovenox in the emergency department -If patient requires further admission tomorrow we will start subcu Lovenox CODE STATUS -DNR CCA with no intubation as reviewed on admission Charges/Coding Visit Charges Inpatient E&M: 30442 Init Hosp L3
[2022-11-14 09:22] LABS: Troponin-I HS 373 pg/mL (3.0-54.0)
[2022-11-14] MEDS: Enoxaparin 80 MG/0.8 ML Syringe 87 MG SC (09:40)
--- NOTE | 2022-11-14 10:11 | ECHOD_ITS ---
Version 2 Reason For Study: CHEST PAIN Procedure This was a 2D Doppler, Color Flow transthoracic echocardiogram. Exam performed portable in patient room. Left Ventricle Normal LV size. Left ventricular systolic function is normal. The estimated ejection fraction is 65 %. Stage 1 diastolic dysfunction. No regional wall motion abnormalities noted. Right Ventricle Normal RV size. Normal systolic function. Atria Normal left atrium. Normal right atrium. Mitral Valve Bileaflet diffuse mitral valve thickening. Mild (1+) eccentric mitral valve insufficiency. Tricuspid Valve Normal tricuspid valve. Mild (1+) tricuspid valve insufficiency. Pulmonary artery systolic pressure is 34 mmHg. Aortic Valve Trisinus/trileaflet aortic valve. Mild diffuse aortic valve thickening. Mild (1+) eccentric aortic valve insufficiency. Pulmonic Valve Normal pulmonic valve. Great Vessels Normal aortic root. Pericardium/Pleural No pericardial effusion. MMode/2D Measurements & Calculations LVIDd: 4.3 cm IVSd: 1.2 cm Ao root diam: 3.3 cm LVIDs: 3.0 cm LVPWd: 1.1 cm RVDd: 3.4 cm FS: 30.8 % LAV(MOD-bp): 51.5 ml LVAd ap4: 24.6 cm2 SV(MOD-sp4): 41.0 ml LAV(MOD-bp) Indexed: 25.6 ml/m2 LVLd ap4: 7.0 cm LAV(MOD-sp2): 47.8 ml EDV(MOD-sp4): 69.8 ml LAV(MOD-sp4): 49.5 ml EDV(sp4-el): 73.5 ml LVAs ap4: 13.8 cm2 LVLs ap4: 5.8 cm ESV(MOD-sp4): 28.8 ml ESV(sp4-el): 27.7 ml EF(MOD-sp4): 58.8 % EF(sp4-el): 62.3 % SV(sp4-el): 45.7 ml LA A4 area: 17.6 cm2 LA dimension(2D): 2.6 cm RA A4 area: 17.2 cm2 Time Measurements MV dec time: 0.17 sec Doppler Measurements & Calculations MV E max ben: 77.9 cm/sec Lat Peak E' Ben: 9.4 cm/sec Med Peak E' Ben: 8.6 cm/sec MV A max ben: 80.0 cm/sec E/E' lat: 8.3 E/E' med: 9.1 MV E/A: 0.97 Ao V2 max: 120.5 cm/sec AI max ben: 469.2 cm/sec LV V1 max: 86.5 cm/sec Ao max P.8 mmHg AI max P.1 mmHg LV V1 max P.0 mmHg AI dec slope: 309.5 cm/sec2 AI P1/2t: 444.1 msec PA V2 max: 90.8 cm/sec TR max ben: 268.6 cm/sec TR max P.9 mmHg ECHO/Echo Complete Interpretation Summary Normal LV size. Left ventricular systolic function is normal. The estimated ejection fraction is 65 %. Bileaflet diffuse mitral valve thickening. Mild (1+) eccentric mitral valve insufficiency. Pulmonary artery systolic pressure is 34 mmHg. Stage 1 diastolic dysfunction. Ordering Physician: Dona Garcia Referring Physician: HUMZA NOWAK Performed By: Joi Calderon RDCS
[2022-11-14 11:49] LABS: Procalcitonin 0.13 ng/mL (0.00-0.09)
--- NOTE | 2022-11-14 11:51 | CON.PCM.CA_ITS ---
Assessment & Plan Assessment/Plan (1) Non-ST elevation MS (NSTEMI): PLAN: She presents with chest discomfort which is very atypical associated with an infiltrate noted on CT and chest x-ray. Her EKG demonstrates no changes and the cardiac enzyme rise and fall is nonexistent. I will recommend at this time that we pursue medical management obtain an echocardiogram to assess her ventricular function and then see her as an outpatient for further work-up. I have discussed this with the patient and her daughter as well as the physician they understand and agree to proceed. Thank you for allowing me to participate in the care of your patient. Please don't hesitate to call if any issues arise. HPI Consult Data Date of Consult: 11/14/22 HPI Narrative HPI Narrative: DEV CONNOLLY, is a 87 F who presents with chest discomfort to the emergency room. She does have a history of hypertension and she describes the chest discomfort as sharp worse with deep inspiration or position. In the emergency room she was evaluated and EKG was done which was noted to be normal her blood pressure was mildly elevated and cardiac enzymes were obtained and they were noted to be abnormal. I was asked to see her. She denies any neck arm or jaw discomfort suggest angina no dizziness no diaphoresis no near syncope or syncope. Cardiac enzymes were noted to be flat but elevated and her chest x-ray demonstrated a left-sided infiltrate abutting the cardiac silhouette and also confirmed by a CT scan. She had previous colon malignancy diagnosed. [facility] Medical History History of hypertension Home Medications multivitamin with folic acid 400 mcg tablet (Thera) 1 tab PO DAILY 05/12/13 [History Last Taken 05/11/13] amlodipine 5 mg tablet 5 mg PO DAILY 02/14/15 [History Last Taken 02/15/15 07:00] loratadine 10 mg tablet (Allergy Relief (loratadine)) 10 mg PO DAILY 02/14/15 [History Last Taken Unknown] Allergy/AdvReac Type Severity Reaction Status Date / Time lisinopril AdvReac Other Verified 11/14/22 06:10 Social History Smoking Status: Former smoker ROS Constitutional Constitutional: Denies fever(s) or weight loss Eyes Eyes: Reports systems reviewed and no addt'l complaints, except as documented ENT HEENT: Reports systems reviewed and no addt'l complaints, except as documented Cardiovascular Cardiovascular: Reports chest pain at rest and chest pain with activity; Denies dyspnea at rest, dyspnea on exertion, edema, palpitations or paroxysmal nocturnal dyspnea Respiratory/Chest Respiratory/Chest: Denies dyspnea on exertion, productive cough, shortness of breath at rest or shortness of breath with exertion Gastrointestinal Gastrointestinal: Denies change in bowel habits, nausea, vomiting or weight changes Genitourinary Genitourinary: Denies difficulty urinating Musculoskeletal Musculoskeletal: Denies joint stiffness or muscle weakness Integumentary Integumentary: Denies lesions Neurologic Neurologic: Denies dizziness or syncope Psychiatric Psychiatric: Denies anxiety Endocrine Endocrinology: Denies excessive sweating or fatigue Hematologic/Lymphatic Hematologic/Lymphatic: Denies anemia Allergic/Immunologic Allergic/Immunologic: Denies seasonal rhinorrhea Physical Exam Const alert, oriented x3 and no apparent distress General Appearance: cooperative HEENT hearing grossly normal bilaterally Head and Scalp: atraumatic Eyes EOMs intact bilaterally Neck General: normal visual inspection Chest inspection of chest normal and palpation of chest normal Resp normal respiratory effort Auscultation: clear to auscultation bilaterally Cardio regular rate, regular rhythm, S1 normal heart sound and S2 normal heart sound Jugular Venous Distention: JVD GI normal to inspection, nondistended, normoactive bowel sounds Extremity normal capillary refill and no pedal edema Peripheral Pulses: Yes pulses 2+ throughout and femoral pulses present Skin no rashes or lesions noted Neuro oriented x3 and CN's II-XII intact bilaterally Psych Appearance: grossly normal and appropriate Risk Stratification Risk Stratification Applicable: Yes Age >/= 65: Yes >/= 3 CAD Risk Factors (HTN, HLD, DM, family hx of CAD, or current smoker): No Aspirin Use in the Past 7 Days: No Severe Angina (>/= episodes in 24 hours): No EKG ST Changes >/= 0.5mm: No Positive Cardiac Marker: Yes GENESIS Risk Stratification Score: 2 GENESIS % Risk: 8% Risk Objective Data Vital Signs: Vital Signs Temp Pulse Resp BP Pulse Ox O2 Del Method 97.8 F 73 18 121/66 H 94 Room Air 11/14/22 11:10 11/14/22 11:10 11/14/22 11:10 11/14/22 11:10 11/14/22 11:10 11/14/22 11:13 Oxygen Delivery Method Room Air Weight: 185 lb 3.013 oz Body Mass Index (BMI) 28.1 Intake & Output: Intake and Output for Last 24 Hours 11/12/22 11/13/22 11/14/22 23:59 23:59 23:59 Intake Total 50 / 50 Balance 50 / 50 Lab / Micro Data Result Diagrams: 11/14/22 06:37 11/14/22 06:37 Labs: Laboratory Results - last 24 hr 11/14/22 06:37: WBC 8.3, RBC 5.26, Hgb 12.0, Hct 39.3, MCV 74.7 L, MCH 22.8 L, MCHC 30.5 L, RDW Std Deviation 40.2, RDW Coeff of Aylin 14.9 H, Plt Count 123 L, MPV 11.6, Immature Gran % (Auto) 0.600, Neut % (Auto) 83.4 H, Lymph % (Auto) 9.0 L, Kingfisher % (Auto) 6.6, Eos % (Auto) 0.0, Baso % (Auto) 0.4, Absolute Neuts (auto) 6.9, Absolute Lymphs (auto) 0.75 L, Nucleated RBC % 0, Differential Comment SCANNED, Platelet Estimate SLT 11/14/22 06:37: Sodium 132 L, Potassium 4.4, Chloride 103, Carbon Dioxide 19.0 L , Anion Gap 10, BUN 20 H, Creatinine 1.38 H, Estim Creat Clear Calc 30.07, Est GFR (MDRD) Af Amer 47 L, Est GFR (MDRD) Non-Af 39 L, BUN/Creatinine Ratio 14.5, Glucose 118 H, Calcium 8.9, Troponin I High Sens 418 H* 11/14/22 08:40: Troponin I High Sens 373 H* 11/14/22 10:47: Procalcitonin 0.13 H Cardiology Labs/Tests 11/14/22 06:37: WBC 8.3, RBC 5.26, Hgb 12.0, Hct 39.3, MCV 74.7 L, MCH 22.8 L, MCHC 30.5 L, Plt Count 123 L, MPV 11.6, Immature Gran % (Auto) 0.600, Neut % (Auto) 83.4 H, Lymph % (Auto) 9.0 L, Kingfisher % (Auto) 6.6, Eos % (Auto) 0.0, Baso % (Auto) 0.4, Absolute Neuts (auto) 6.9, Nucleated RBC % 0 11/14/22 06:37: Sodium 132 L, Potassium 4.4, Chloride 103, Carbon Dioxide 19.0 L , Anion Gap 10, BUN 20 H, Creatinine 1.38 H, Est GFR (MDRD) Af Amer 47 L, Est GFR (MDRD) Non-Af 39 L, BUN/Creatinine Ratio 14.5, Glucose 118 H, Calcium 8.9 Rhythm: EKG: ECHO: Stress Test: Cardiac Cath: PCI: CT Surgery: Holter monitor: EPS: PPM: CXR: Chest CT Scan: Radiography Diagnostic Testing: Radiology Impression Chest X-Ray 11/14/22 06:45 IMPRESSION: 1. Moderate wedge-shaped juxtapleural parenchymal opacity in the left lateral mid lung at the level of of the hilum, new since November 14, 2022. Considerations include infarct, pneumonia and mass. 2. Enhanced chest CT is recommended for further evaluation. Consider PE protocol CTA if it is thought to be indicated. 3. Previously seen linear irregular opacity in the right medial lower lung field is similar to April 06, 2020, there was increased opacity around bronchovascular structures on the prior CT exam the same day. Electronically Signed: Yani Kramer MD at 7:15 EDT Reading Location ID and State: [facility] / [place] Tel , Service support , ADDENDUM: 11/14/22 3035 IMPRESSION: 1. Moderate wedge-shaped juxtapleural parenchymal opacity in the left lateral mid lung at the level of of the hilum, new since November 14, 2022. Considerations include infarct, pneumonia and mass. 2. Enhanced chest CT is recommended for further evaluation. Consider PE protocol CTA if it is thought to be indicated. 3. Previously seen linear irregular opacity in the right medial lower lung field is similar to April 06, 2020, there was increased opacity around bronchovascular structures on the prior CT exam the same day. N.B. : The above Results were Read Back by Yani Kramer MD to Amy Simpson MD, and understanding confirmed on 11/14/2022 07:23:16 (ET). Electronically Signed: Yani Kramer MD at 7:15 EDT , Chest CTA 11/14/22 07:21 IMPRESSION: No evidence of pulmonary embolism. Moderate consolidation in the periphery of the left lung, concerning for pneumonia in the acute setting. Recommend follow-up to resolution. Mild left parapneumonic effusion and mild lymphadenopathy, likely reactive. Mild pericardial effusion. Mild pulmonary emphysema with chronic right lower lobe opacity, likely scarring and postinflammatory change. Electronically Signed: Iris Delcid MD at 8:14 EDT ,
[2022-11-14] MEDS: Loratadine 10 MG Tablet PO (12:29)
[2022-11-14] MEDS: Multivitamins,Therapeutic Tablet 1 TABLET PO (12:29)
[2022-11-14] MEDS: Pantoprazole Sodium 20 MG Tablet PO (12:29)
[2022-11-14] MEDS: guaiFENesin 1,200 MG Tablet 1200 MG PO ×2 (12:29→20:48)
[2022-11-14] MEDS: amLODIPine 5 MG Tablet PO (12:29)
[2022-11-14 13:02] LABS: Troponin-I HS 252 pg/mL (3.0-54.0)
[2022-11-14 14:27] LABS: M R Staph aureus DNA By PCR Negative (Negative); Probe Check PASS; Specimen Processing Control PASS
[2022-11-14] MEDS: Lactated Ringers 1,000 ML 70 ML IV (17:40)
[2022-11-14] MEDS: Ipratropium/Albuterol Sulfate 3 ML AMPUL.NEB INHALATION (19:42)
[2022-11-14] MEDS: 0.9% Saline Lock 10 ML Syringe IV (20:49)
[2022-11-15] VITALS (11 sets, daily range): BP systolic 119–150; BP diastolic 54–86; PULSE 74–98; RESP 16–20; TEMP 36.7–37.7; O2SAT 91–98
[2022-11-15 06:35] LABS: Hematocrit 36.4 % (37-47); Hemoglobin 11.4 g/dL (12.0-15.0); Mean Corp Hgb Conc 31.3 g/dL (32-36); Mean Corpuscular Hgb 22.8 pg (27.0-32.0); Mean Corpuscular Volume 72.7 fL (81-99); Platelet Count 149 K/mm3 (150-450); RBC Distribution Width CV 14.6 % (11.6-14.6); RBC Distribution Width SD 38.2 fl (35.1-43.9); Red Blood Count 5.01 M/mm3 (4.2-5.4); White Blood Count 6.9 K/mm3 (4.4-11.0)
[2022-11-15] MEDS: Ipratropium/Albuterol Sulfate 3 ML AMPUL.NEB INHALATION ×3 (07:19→19:20)
[2022-11-15 07:23] LABS: ALB/GLOB Ratio 0.5 RATIO (0.9-2.4); AST(SGOT) 42 U/L (15-37); Alanine Aminotransfer ALT/SGPT 27 U/L (13-56); Albumin, Serum 2.3 g/dL (3.2-5.0); Alkaline Phosphatase 65 U/L (45-117); Anion Gap 9 (5-15); BUN 16 mg/dL (7-18); BUN/Creat Ratio 12.3 RATIO (10-20); Calcium,Total 8.2 mg/dL (8.5-10.1); Chloride 106 mmol/L (98-107); Cholesterol 115 mg/dL (200); EST Glomerular Filtration Rate 41 mL/min (>60); Est Glom Filt Rate - Afr Amer 50 mL/min (>60); Estimated Creatinine Clearance 31.92 ml/min; Globulin 4.5 g/dL (2.2-4.2); Glucose 132 mg/dL (74-106); High Density Lipoprotein 31 mg/dL; Magnesium 2.3 mg/dL (1.6-2.6); Protein, Total 6.8 g/dL (6.4-8.2); Sodium Level 136 mmol/L (136-145); Thyroid Stim Hormone (TSH) 1.11 uIU/mL (0.358-3.74); Triglycerides 119 mg/dL; Very Low Density Lipoprotein 24 mg/dL (5-40)
[2022-11-15 07:33] LABS: Phosphorus 2.3 mg/dL (2.5-4.9)
[2022-11-15] MEDS: Loratadine 10 MG Tablet PO (09:12)
[2022-11-15] MEDS: Pantoprazole Sodium 20 MG Tablet PO (09:12)
[2022-11-15] MEDS: Aspirin E.C. 81 MG Tablet PO (09:12)
[2022-11-15] MEDS: Multivitamins,Therapeutic Tablet 1 TABLET PO (09:13)
[2022-11-15] MEDS: guaiFENesin 1,200 MG Tablet 1200 MG PO ×2 (09:13→21:24)
[2022-11-15] MEDS: Carvedilol 6.25 MG Tablet PO ×2 (09:13→21:24)
[2022-11-15] MEDS: amLODIPine 5 MG Tablet PO (09:13)
[2022-11-15] MEDS: Enoxaparin 40 MG/0.4 ML Syringe SC (09:14)
--- NOTE | 2022-11-15 09:35 | CASEMGMT ---
Addendum entered by Joaquina Joya 11/15/22 14:26: Noted therapy recommending further therapy. LEIGH ANN ALBERTS into pt room, pt sitting up in chair. Pt states she feels she did good with therapy. She declines any HHC or outpt therapy at this time. Pt is aware that should she get home and feel weaker than expected, she can contact her pcp to have therapy set up. Pt denies need for any AD. Discussed homegoing oxygen instructions should pt need to dc on oxygen, pt verbalized understanding. Green sheet on chart. Original Note: LEIGH ANN ALBERTS Assessment: Face to Face with pt for initial transition planning/care coordination assessment. LEIGH ANN ALBERTS introduced self and role at [facility], pt voices understanding and consents to assessment. Pt is A/O x4 and answers all questions appropriately at this time. Pt lying in bed in no distress, dtr came in mid way through assessment. Care providers, pharmacy, and demographics verified/updated. Admitting Dx: NSTEMI PCP:Rk Specialists: Pt denies. Preferred Pharmacy: [facility] Insurance: [employer] [facility] Prescription Benefit: yes LNOK: Guicho Uriostegui, Living Arrangements: Pt lives with in a two story home with 3 steps to enter with a rail. Pt reports she is I in ADL's and denies concerns at home. Transportation: Pt drives self and denies concerns with transportation. DME/HHC/SNF: Pt denies having any DME in the home, denies hx of HHC or SNF stays. Pt states no concerns with going home at time of dc. Pt denies any needs for therapy at this time. Therapy has not eval'd yet. Pt states no further concerns/needs. CM to follow. Advised pt to ask CM if any further question/concerns/needs arise, voices understanding. Pt Goal: Home Plan: Home
--- NOTE | 2022-11-15 10:13 | PN.CARD_ITS ---
Subjective Subjective Patient seen and evaluated. Appears to be stable. Objective Data Vital Signs: Vital Signs Temp Pulse Resp BP Pulse Ox O2 Del Method O2 Flow Rate 98.4 F 95 16 142/74 H 94 Nasal Cannula 2 11/15/22 09:00 11/15/22 09:00 11/15/22 09:00 11/15/22 09:00 11/15/22 09:00 11/15/22 09:00 11/15/22 09:00 Oxygen Flow Rate (L/min) 2 Oxygen Delivery Method Nasal Cannula Weight: 185 lb 3.013 oz Body Mass Index (BMI) 28.1 Intake & Output: Intake and Output for Last 24 Hours 11/13/22 11/14/22 11/15/22 23:59 23:59 23:59 Intake Total 1105 / 1105 1050 / 1050 Balance 1105 / 1105 1050 / 1050 Lab / Micro Data Result Diagrams: 11/15/22 06:16 11/15/22 06:16 Labs: Laboratory Results - last 24 hr 11/14/22 10:47: Procalcitonin 0.13 H 11/14/22 12:30: Troponin I High Sens 252 H* 11/14/22 12:50: MRSA (PCR) Negative 11/15/22 06:16: WBC 6.9, RBC 5.01, Hgb 11.4 L, Hct 36.4 L, MCV 72.7 L, MCH 22.8 L, MCHC 31.3 L, RDW Std Deviation 38.2, RDW Coeff of Aylin 14.6, Plt Count 149 L, MPV 11.0 11/15/22 06:16: Sodium 136, Potassium 4.0, Chloride 106, Carbon Dioxide 21.0, Anion Gap 9, BUN 16, Creatinine 1.30 H, Estim Creat Clear Calc 31.92, Est GFR (MDRD) Af Amer 50 L, Est GFR (MDRD) Non-Af 41 L, BUN/Creatinine Ratio 12.3, Glucose 132 H, Calcium 8.2 L, Magnesium 2.3, Total Bilirubin 0.40, AST 42 H, ALT 27, Alkaline Phosphatase 65, Total Protein 6.8, Albumin 2.3 L, Globulin 4.5 H, Albumin/Globulin Ratio 0.5 L, Triglycerides 119, Cholesterol 115, LDL Choleste rol 60, VLDL Cholesterol 24, HDL Cholesterol 31 L, TSH 1.11 11/15/22 06:16: Phosphorus 2.3 L Micro: Microbiology 11/14/22 17:55 Sputum, Expectorated/Coughed Gram Stain - Preliminary 11/14/22 16:56 Urine, Random Streptococcus pneumoniae Antigen (M - Final 11/14/22 16:56 Urine, Random Legionella Antigen - Final 11/14/22 11:58 Mucosa - Nasopharyngeal Respiratory Panel (PCR) - Final Cardiology Labs/Tests 11/15/22 06:16: WBC 6.9, RBC 5.01, Hgb 11.4 L, Hct 36.4 L, MCV 72.7 L, MCH 22.8 L, MCHC 31.3 L, Plt Count 149 L, MPV 11.0 11/15/22 06:16: Sodium 136, Potassium 4.0, Chloride 106, Carbon Dioxide 21.0, Anion Gap 9, BUN 16, Creatinine 1.30 H, Est GFR (MDRD) Af Amer 50 L, Est GFR (MDRD) Non-Af 41 L, BUN/Creatinine Ratio 12.3, Glucose 132 H, Calcium 8.2 L, Magnesium 2.3, Total Bilirubin 0.40, Triglycerides 119, Cholesterol 115, LDL Cholesterol 60, VLDL Cholesterol 24, HDL Cholesterol 31 L 11/15/22 06:16: Phosphorus 2.3 L Rhythm: EKG: ECHO: Stress Test: Cardiac Cath: PCI: CT Surgery: Holter monitor: EPS: PPM: CXR: Chest CT Scan: Radiography Diagnostic Testing: Radiology Impression Echocardiogram 11/14/22 10:11 Interpretation Summary Normal LV size. Left ventricular systolic function is normal. The estimated ejection fraction is 65 %. Bileaflet diffuse mitral valve thickening. Mild (1+) eccentric mitral valve insufficiency. Pulmonary artery systolic pressure is 34 mmHg. Stage 1 diastolic dysfunction. Ordering Physician: Dona Garcia Referring Physician: HUMZA NOWAK Performed By: Joi Calderon, TEVIN Physical Exam Const alert, oriented x3 and no apparent distress General Appearance: cooperative HEENT hearing grossly normal bilaterally Head and Scalp: atraumatic Eyes EOMs intact bilaterally Neck General: normal visual inspection Chest inspection of chest normal and palpation of chest normal Resp normal respiratory effort Auscultation: clear to auscultation bilaterally Cardio regular rate, regular rhythm, S1 normal heart sound and S2 normal heart sound Jugular Venous Distention: JVD GI normal to inspection, nondistended, normoactive bowel sounds Extremity normal capillary refill and no pedal edema Peripheral Pulses: Yes pulses 2+ throughout and femoral pulses present Skin no rashes or lesions noted Neuro oriented x3 and CN's II-XII intact bilaterally Psych Appearance: grossly normal and appropriate Assessment & Plan Assessment/Plan (1) Non-ST elevation MA (NSTEMI): PLAN: She presents with chest discomfort which is very atypical associated with an infiltrate noted on CT and chest x-ray. Her EKG demonstrates no changes and the cardiac enzyme rise and fall is nonexistent. Her echocardiogram demonstrated preserved left ventricular systolic function We will continue with current medical therapy and further work-up of her cardiac issues as an outpatient with a possible stress test. I have discussed this with the patient and her daughter as well as the physician they understand and agree to proceed. Thank you for allowing me to participate in the care of your patient. Please don't hesitate to call if any issues arise.
--- NOTE | 2022-11-15 13:23 | PN.HOSP_ITS ---
Reason for Visit Reason for Visit: Chest pain Subjective Subjective Patient developed fever and required supplemental oxygen overnight. Still complaining of pleuritic left-sided chest pain. We discussed that it is likely related to this pneumonia she has. Antibiotics are to remain and sputum cultures pending. She will need outpatient follow-up with pulmonary medicine and this has been scheduled. She will need a follow-up CT scan in the next 4 to 6 weeks to really examine the area in question. Objective Data Objective Data Vital Signs: Vital Signs Temp Pulse Resp BP Pulse Ox O2 Del Method O2 Flow Rate 99 F 74 18 136/86 H 96 Nasal Cannula 2 11/15/22 12:08 11/15/22 12:08 11/15/22 12:08 11/15/22 12:08 11/15/22 12:08 11/15/22 09:00 11/15/22 09:00 Oxygen Flow Rate (L/min) 2 Oxygen Delivery Method Nasal Cannula Weight: 84 kg Body Mass Index (BMI) 28.1 Intake & Output: Intake and Output for Last 24 Hours 11/13/22 11/14/22 11/15/22 23:59 23:59 23:59 Intake Total 1105 / 1105 1732 / 1732 Balance 1105 / 1105 1732 / 1732 Lab / Micro Data Result Diagrams: 11/15/22 06:16 11/15/22 06:16 Labs: Laboratory Results - last 24 hr 11/14/22 12:50: MRSA (PCR) Negative 11/15/22 06:16: WBC 6.9, RBC 5.01, Hgb 11.4 L, Hct 36.4 L, MCV 72.7 L, MCH 22.8 L, MCHC 31.3 L, RDW Std Deviation 38.2, RDW Coeff of Aylin 14.6, Plt Count 149 L, MPV 11.0 11/15/22 06:16: Sodium 136, Potassium 4.0, Chloride 106, Carbon Dioxide 21.0, Anion Gap 9, BUN 16, Creatinine 1.30 H, Estim Creat Clear Calc 31.92, Est GFR (MDRD) Af Amer 50 L, Est GFR (MDRD) Non-Af 41 L, BUN/Creatinine Ratio 12.3, Glucose 132 H, Calcium 8.2 L, Magnesium 2.3, Total Bilirubin 0.40, AST 42 H, ALT 27, Alkaline Phosphatase 65, Total Protein 6.8, Albumin 2.3 L, Globulin 4.5 H, Albumin/Globulin Ratio 0.5 L, Triglycerides 119, Cholesterol 115, LDL Cholesterol 60, VLDL Cholesterol 24, HDL Cholesterol 31 L, TSH 1.11 11/15/22 06:16: Phosphorus 2.3 L Micro: Microbiology 11/14/22 17:55 Sputum, Expectorated/Coughed Gram Stain - Preliminary 11/14/22 17:55 Sputum, Expectorated/Coughed Respiratory Culture - Preliminary Appears to be normal respiratory stephani. Further studies to follow. 11/14/22 16:56 Urine, Random Streptococcus pneumoniae Antigen (M - Final 11/14/22 16:56 Urine, Random Legionella Antigen - Final 11/14/22 11:58 Mucosa - Nasopharyngeal Respiratory Panel (PCR) - Final Radiography Diagnostic Testing: Radiology Impression Echocardiogram 11/14/22 10:11 Interpretation Summary Normal LV size. Left ventricular systolic function is normal. The estimated ejection fraction is 65 %. Bileaflet diffuse mitral valve thickening. Mild (1+) eccentric mitral valve insufficiency. Pulmonary artery systolic pressure is 34 mmHg. Stage 1 diastolic dysfunction. Ordering Physician: Dona Garcia Referring Physician: HUMZA NOWAK Performed By: Joi Calderon RDCS Physical Exam Const alert, oriented x3, no apparent distress and well nourished Constitutional Narrative: Very pleasant, elderly, -Citizen Of [place] female, overweight, lying in bed, daughter at bedside, patient appears comfortable and nontoxic however she does appear much more fatigued than she did yesterday on admission General Appearance: cooperative HEENT normocephalic, head/scalp atraumatic, hearing grossly normal bilaterally and moist oral mucous membranes HEENT Narrative: Mallampati is 3, no thrush Resp normal respiratory effort, no retractions, no use of accessory muscles and No clear to auscultation bilaterally Resp Narrative: Diffusely diminished, Crackles noted in left lower and midlung field most notably laterally Auscultation: crackles; Negative for rhonchi or wheezes Cardio regular rate, regular rhythm, S1 normal heart sound, S2 normal heart sound, no murmurs, no rub, no gallops and no clicks GI normal to inspection, nondistended, normoactive bowel sounds, soft to palpation and non-tender Extremity no clubbing, cyanosis or edema Neuro oriented x3, moves all extremities and no focal motor deficits Speech: speech normal Psych affect normal Psych Narrative: Appropriately interactive, pleasant Assessment & Plan Assessment/Plan (1) Non-ST elevation GA (NSTEMI): (2) Hypophosphatemia: (3) RBC microcytosis: PLAN: Plan NSTEMI -Suspect type II related to pneumonia -Cardiac enzymes cycled and as [id number] -Continue aspirin -Continue Coreg 6.25 mg p.o. twice daily -Echocardiogram performed yesterday and demonstrated an EF of 65% with no wall motion abnormalities, bileaflet diffuse mitral valve thickening, mild eccentric mitral valve insufficiency, stage I diastolic dysfunction and pulmonary pressure of 34 mmHg -Total cholesterol is 115/LDL 60/HDL 31/triglycerides 118 -Discontinue atorvastatin -Cardiology following-appreciate input--> plan is for outpatient follow-up with probable noninvasive testing Pneumonia -Patient without cough or fever however CAT scan shows large infiltrate and bronchiectasis -Aggressive pulmonary toilet with incentive spirometry and Acapella -Scheduled DuoNebs and as needed albuterol -Patient did spike a temperature overnight of 101 with Tmax and is currently afebrile -Oxygen was also initiated and currently on 2 L -Wean as able -Will need ambulatory pulse ox at discharge -Continue Zosyn -MRSA PCR is negative -Follow-up appointment with pulmonary medicine has been made as she will need follow-up imaging in 4 to [address] of her chest Microcytosis -Check iron studies -Patient does have anemia after hydration however this is mild -If iron studies indicate iron deficiency will check [employer] Hypophosphatemia -Sodium Phos given -Repeat Phos level in a.m. 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
[2022-11-15 13:59] LABS: Ferritin 696 ng/mL (8-252); Iron 9 ug/dL (50-170); Iron Binding Capacity,Total 187 ug/dL (250-450); PERCENT IRON SATURATION 4.8 % (15.0-55.0)
[2022-11-15] MEDS: 0.9% Saline Lock 10 ML Syringe IV (21:45)
[2022-11-16] VITALS (15 sets, daily range): BP systolic 125–150; BP diastolic 63–82; PULSE 63–78; RESP 14–18; TEMP 36.6–36.7; O2SAT 85–97
[2022-11-16] MEDS: Acetaminophen 325 MG Tablet 650 MG PO ×3 (03:23→21:29)
[2022-11-16 05:31] LABS: Absolute Lymphocyte Count 0.92 X10^3/uL (0.83-4.51); Absolute Neutrophil Count 4.4 X10^3/uL (2.0-7.7); Basophil# 0.03 X10^3/uL; Basophil% 0.5 % (0-1); Eosinophil# 0.03 X10^3/uL; Eosinophils% 0.5 % (0-5); Hematocrit 34.7 % (37-47); Hemoglobin 10.7 g/dL (12.0-15.0); Lymphocyte # 0.92 X10^3/ul (0.83-4.51); Lymphocyte % 15.7 % (19-41); Mean Corp Hgb Conc 30.8 g/dL (32-36); Mean Corpuscular Hgb 22.6 pg (27.0-32.0); Mean Corpuscular Volume 73.4 fL (81-99); Mean Platelet Vol. 11.1 fl (6.2-12.0); Monocyte# 0.48 X10^3/uL; Monocyte% 8.2 % (0-10); NRBC Flagged by Analyzer 0 % (0-5); Neutrophil # 4.38 X10^3/uL (2.7-7.7); Neutrophil % 74.6 % (47-70); Platelet Count 173 K/mm3 (150-450); RBC Distribution Width CV 14.8 % (11.6-14.6); RBC Distribution Width SD 39.6 fl (35.1-43.9); Red Blood Count 4.73 M/mm3 (4.2-5.4); White Blood Count 5.9 K/mm3 (4.4-11.0)
[2022-11-16 05:57] LABS: ALB/GLOB Ratio 0.5 RATIO (0.9-2.4); AST(SGOT) 65 U/L (15-37); Alanine Aminotransfer ALT/SGPT 41 U/L (13-56); Albumin, Serum 2.1 g/dL (3.2-5.0); Alkaline Phosphatase 66 U/L (45-117); Anion Gap 6 (5-15); BUN 20 mg/dL (7-18); BUN/Creat Ratio 12.6 RATIO (10-20); Calcium,Total 8.2 mg/dL (8.5-10.1); Chloride 107 mmol/L (98-107); Creatinine, Serum 1.59 mg/dL (0.55-1.02); EST Glomerular Filtration Rate 33 mL/min (>60); Est Glom Filt Rate - Afr Amer 40 mL/min (>60); Estimated Creatinine Clearance 26.09 ml/min; Globulin 4.5 g/dL (2.2-4.2); Glucose 132 mg/dL (74-106); Magnesium 2.3 mg/dL (1.6-2.6); Phosphorus 2.8 mg/dL (2.5-4.9); Potassium 3.5 mmol/L (3.5-5.1); Protein, Total 6.6 g/dL (6.4-8.2); Sodium Level 136 mmol/L (136-145)
[2022-11-16] MEDS: Ipratropium/Albuterol Sulfate 3 ML AMPUL.NEB INHALATION ×3 (07:34→19:41)
[2022-11-16 09:07] LABS: Carcinoembryonic Antigen 3.6 ng/mL (0.0-4.7)
[2022-11-16] MEDS: Carvedilol 6.25 MG Tablet PO ×2 (09:27→21:29)
[2022-11-16] MEDS: Aspirin E.C. 81 MG Tablet PO (09:27)
[2022-11-16] MEDS: Pantoprazole Sodium 20 MG Tablet PO (09:27)
[2022-11-16] MEDS: guaiFENesin 1,200 MG Tablet 1200 MG PO ×2 (09:27→21:29)
[2022-11-16] MEDS: amLODIPine 5 MG Tablet PO (09:27)
[2022-11-16] MEDS: Multivitamins,Therapeutic Tablet 1 TABLET PO (09:27)
[2022-11-16] MEDS: Loratadine 10 MG Tablet PO (09:27)
[2022-11-16] MEDS: Enoxaparin 30 MG/0.3 ML Syringe SC (09:32)
--- NOTE | 2022-11-16 13:55 | PN.HOSP_ITS ---
Reason for Visit Reason for Visit: Chest pain Subjective Subjective Patient states she is feeling better overall. She does not want to go home with her daughter and would like to go home with her . I did discuss with her that I do not think she should go home to stay initially and that she should probably go stay with her her daughter for the short-term but she is fairly resistant in doing so. I did discuss with her that we may be able to discharge her sooner if that is the case however she was adamant that she wants to go home. She does admit she is coughing some. I discussed the sputum thus far has not been not helpful as initially is only showing oral stephani. She is on oxygen at 2 L. Fever curve is improving. Still complaining of some pain in the left anterior chest wall region inferior to her left breast. Objective Data Objective Data Vital Signs: Vital Signs Temp Pulse Resp BP Pulse Ox O2 Del Method O2 Flow Rate 98 F 78 18 128/82 H 96 Nasal Cannula 2 11/16/22 13:44 11/16/22 13:44 11/16/22 13:44 11/16/22 13:44 11/16/22 13:44 11/16/22 13:44 11/16/22 13:44 Oxygen Flow Rate (L/min) [ 0 AMBULATING on Room Air] Oxygen Flow Rate (L/min) [At 0 REST on Room Air] Oxygen Flow Rate (L/min) 2 Oxygen Delivery Method Nasal Cannula Weight: 84 kg Body Mass Index (BMI) 28.1 Intake & Output: Intake and Output for Last 24 Hours 11/14/22 11/15/22 11/16/22 23:59 23:59 23:59 Intake Total 1105 / 1105 2021 340 / 340 Output Total 0 / 0 Balance 1105 / 1105 2021 340 / 340 Lab / Micro Data Result Diagrams: 11/16/22 05:15 11/16/22 05:15 Labs: Laboratory Results - last 24 hr 11/15/22 06:16: Carcinoembryonic Ag 3.6 11/15/22 06:16: Iron 9 L, TIBC 187 L, Iron Saturation 4.8 L, Ferritin 696 H 11/16/22 05:15: WBC 5.9, RBC 4.73, Hgb 10.7 L, Hct 34.7 L, MCV 73.4 L, MCH 22.6 L, MCHC 30.8 L, RDW Std Deviation 39.6, RDW Coeff of Aylin 14.8 H, Plt Count 173, MPV 11.1, Immature Gran % (Auto) 0.500, Neut % (Auto) 74.6 H, Lymph % (Auto) 15.7 L, [place] % (Auto) 8.2, Eos % (Auto) 0.5, Baso % (Auto) 0.5, Absolute Neuts (auto) 4.4, Absolute Lymphs (auto) 0.92, Nucleated RBC % 0 11/16/22 05:15: Sodium 136, Potassium 3.5, Chloride 107, Carbon Dioxide 23.0, Anion Gap 6, BUN 20 H, Creatinine 1.59 H, Estim Creat Clear Calc 26.09, Est GFR (MDRD) Af Amer 40 L, Est GFR (MDRD) Non-Af 33 L, BUN/Creatinine Ratio 12.6, Glucose 132 H, Calcium 8.2 L, Phosphorus 2.8, Magnesium 2.3, Total Bilirubin 0.40, AST 65 H, ALT 41, Alkaline Phosphatase 66, Total Protein 6.6, Albumin 2.1 L, Globulin 4.5 H, Albumin/Globulin Ratio 0.5 L Micro: Microbiology 11/14/22 11:00 Blood Culture (Wb) - Left Hand Blood Culture - Preliminary No growth in 48 hours. 11/14/22 10:47 Blood Culture (Wb) - Anticubital Left Blood Culture - Preliminary No growth in 48 hours. 11/14/22 17:55 Sputum, Expectorated/Coughed Gram Stain - Final 11/14/22 17:55 Sputum, Expectorated/Coughed Respiratory Culture - Preliminary Appears to be normal respiratory stephani. Further studies to follow. 11/14/22 16:56 Urine, Random Streptococcus pneumoniae Antigen (M - Final 11/14/22 16:56 Urine, Random Legionella Antigen - Final 11/14/22 11:58 Mucosa - Nasopharyngeal Respiratory Panel (PCR) - Final Physical Exam Const alert, oriented x3, no apparent distress and well nourished Constitutional Narrative: Very pleasant, elderly, -[place] female, overweight, lying in bed, napping but awakens easily General Appearance: cooperative HEENT normocephalic, head/scalp atraumatic, hearing grossly normal bilaterally and moist oral mucous membranes HEENT Narrative: Edentulous, Mallampati 2, no thrush Resp normal respiratory effort, no retractions, no use of accessory muscles and No clear to auscultation bilaterally Resp Narrative: Diminished but clear Auscultation: Negative for crackles, rhonchi or wheezes Cardio regular rate, regular rhythm, S1 normal heart sound, S2 normal heart sound, no murmurs, no rub, no gallops and no clicks Cardio Narrative: No tenderness on palpation of the left anterior chest wall GI normal to inspection, nondistended, normoactive bowel sounds, soft to palpation and non-tender Extremity no clubbing, cyanosis or edema Neuro oriented x3, moves all extremities and no focal motor deficits Speech: speech normal Psych affect normal Psych Narrative: Appropriately interactive, pleasant Assessment & Plan Assessment/Plan (1) Non-ST elevation [place] (NSTEMI): (2) Hypophosphatemia: (3) RBC microcytosis: PLAN: Plan NSTEMI -Suspect type II related to pneumonia -Cardiac enzymes cycled and as [id number] -Continue aspirin -Continue Coreg 6.25 mg p.o. twice daily -Echocardiogram performed 11/14/2022 and demonstrated an EF of 65% with no wall motion abnormalities, bileaflet diffuse mitral valve thickening, mild eccentric mitral valve insufficiency, stage I diastolic dysfunction and pulmonary pressure of 34 mmHg -Total cholesterol is 115/LDL 60/HDL 31/triglycerides 118 -Cardiology following-appreciate input--> plan is for outpatient follow-up with probable noninvasive testing Left lower lobe pneumonia -Patient without cough or fever however CAT scan shows large infiltrate and bro nchiectasis -Patient did spike a temperature yesterday with a Tmax of 101 -No further temperatures and curve is improving -Aggressive pulmonary toilet with incentive spirometry and Acapella -Scheduled DuoNebs and as needed albuterol -Patient did spike a temperature overnight of 101 with Tmax and is currently afebrile -Oxygen was also initiated and currently on 2 L -Wean as able -Will need ambulatory pulse ox at discharge -Continue Zosyn -Blood cultures are negative -Strep pneumo and Legionella antigens are negative -Sputum culture sent however at this point preliminary shows normal respiratory stephani -Follow-up appointment with pulmonary medicine has been made as she will need follow-up imaging in 4 to [address] of her chest Microcytosis -Iron studies were not consistent with iron deficiency -Patient could be sickle cell trait carrier -Hemoglobin relatively stable Hypophosphatemia -Resolved Hypertension -Continue home amlodipine -Continue Coreg CKD stage IIIb -Slight bump in renal function however not DARIA--> discussed with patient to increase oral hydration -When compared to recent data her serum creatinine appears to be stable and at baseline -Stable -Repeat BMP in a.m. 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
[2022-11-17] VITALS (15 sets, daily range): BP systolic 114–137; BP diastolic 60–69; PULSE 66–77; RESP 14–24; TEMP 36.5–36.9; O2SAT 88–94
[2022-11-17] MEDS: Albuterol 2.5 MG/3 ML VIAL.NEB. INHALATION (02:50)
[2022-11-17 05:43] LABS: Absolute Lymphocyte Count 0.77 X10^3/uL (0.83-4.51); Absolute Neutrophil Count 4.5 X10^3/uL (2.0-7.7); Basophil# 0.02 X10^3/uL; Basophil% 0.3 % (0-1); Eosinophil# 0.07 X10^3/uL; Eosinophils% 1.2 % (0-5); Hematocrit 33.9 % (37-47); Hemoglobin 10.8 g/dL (12.0-15.0); Lymphocyte # 0.77 X10^3/ul (0.83-4.51); Lymphocyte % 13.2 % (19-41); Mean Corp Hgb Conc 31.9 g/dL (32-36); Mean Corpuscular Hgb 22.8 pg (27.0-32.0); Mean Corpuscular Volume 71.7 fL (81-99); Mean Platelet Vol. 10.5 fl (6.2-12.0); Monocyte# 0.43 X10^3/uL; Monocyte% 7.4 % (0-10); NRBC Flagged by Analyzer 0 % (0-5); Neutrophil # 4.53 X10^3/uL (2.7-7.7); Neutrophil % 77.4 % (47-70); Platelet Count 189 K/mm3 (150-450); RBC Distribution Width CV 14.9 % (11.6-14.6); RBC Distribution Width SD 38.7 fl (35.1-43.9); Red Blood Count 4.73 M/mm3 (4.2-5.4); White Blood Count 5.9 K/mm3 (4.4-11.0)
[2022-11-17 06:27] LABS: Anion Gap 7 (5-15); BUN 20 mg/dL (7-18); BUN/Creat Ratio 14.9 RATIO (10-20); Calcium,Total 8.4 mg/dL (8.5-10.1); Chloride 107 mmol/L (98-107); Creatinine, Serum 1.34 mg/dL (0.55-1.02); EST Glomerular Filtration Rate 40 mL/min (>60); Est Glom Filt Rate - Afr Amer 48 mL/min (>60); Estimated Creatinine Clearance 30.96 ml/min; Glucose 114 mg/dL (74-106); Potassium 3.5 mmol/L (3.5-5.1); Sodium Level 138 mmol/L (136-145)
[2022-11-17] MEDS: Ipratropium/Albuterol Sulfate 3 ML AMPUL.NEB INHALATION ×3 (07:39→19:59)
[2022-11-17] MEDS: Acetaminophen 325 MG Tablet 650 MG PO ×2 (08:21→20:28)
[2022-11-17] MEDS: Loratadine 10 MG Tablet PO (08:22)
[2022-11-17] MEDS: Pantoprazole Sodium 20 MG Tablet PO (08:22)
[2022-11-17] MEDS: Aspirin E.C. 81 MG Tablet PO (08:22)
[2022-11-17] MEDS: guaiFENesin 1,200 MG Tablet 1200 MG PO ×2 (08:22→22:48)
[2022-11-17] MEDS: Multivitamins,Therapeutic Tablet 1 TABLET PO (08:22)
[2022-11-17] MEDS: Enoxaparin 30 MG/0.3 ML Syringe SC (08:25)
[2022-11-17] MEDS: amLODIPine 5 MG Tablet PO (08:32)
[2022-11-17] MEDS: Carvedilol 6.25 MG Tablet PO ×2 (08:32→22:48)
[2022-11-17] MEDS: Linezolid 600 MG Tablet PO ×2 (10:02→22:49)
--- NOTE | 2022-11-17 10:57 | PCM.PN.HOSP ---
Reason for Visit Reason for Visit: Chest pain Subjective Subjective Patient states she was feeling pretty good yesterday. States she feels blah today and is tired. Did not sleep great last night. Has been weaned to room air at rest. Still having some left-sided chest pain related to her infiltrate. Objective Data Objective Data Vital Signs: Vital Signs Temp Pulse Resp BP Pulse Ox O2 Del Method O2 Flow Rate 97.7 F L 77 18 137/69 H 92 Room Air 2 11/17/22 08:45 11/17/22 08:45 11/17/22 08:45 11/17/22 08:45 11/17/22 08:45 11/17/22 08:45 11/17/22 07:40 Oxygen Flow Rate (L/min) [ 0 AMBULATING on Room Air] Oxygen Flow Rate (L/min) [At 0 REST on Room Air] Oxygen Flow Rate (L/min) 2 Oxygen Delivery Method Room Air Weight: 84 kg Body Mass Index (BMI) 28.1 Intake & Output: Intake and Output for Last 24 Hours 11/15/22 11/16/22 11/17/22 23:59 23:59 23:59 Intake Total 2021 630 / 650 120 / 120 Output Total 0 / 0 Balance 2021 630 / 650 120 / 120 Lab / Micro Data Result Diagrams: 11/17/22 05:30 11/17/22 05:30 Labs: Laboratory Results - last 24 hr 11/17/22 05:30: WBC 5.9, RBC 4.73, Hgb 10.8 L, Hct 33.9 L, MCV 71.7 L, MCH 22.8 L, MCHC 31.9 L, RDW Std Deviation 38.7, RDW Coeff of Aylin 14.9 H, Plt Count 189, MPV 10.5, Immature Gran % (Auto) 0.500, Neut % (Auto) 77.4 H, Lymph % (Auto) 13.2 L, [place] % (Auto) 7.4, Eos % (Auto) 1.2, Baso % (Auto) 0.3, Absolute Neuts (auto) 4.5, Absolute Lymphs (auto) 0.77 L, Nucleated RBC % 0 11/17/22 05:30: Sodium 138, Potassium 3.5, Chloride 107, Carbon Dioxide 24.0, Anion Gap 7, BUN 20 H, Creatinine 1.34 H, Estim Creat Clear Calc 30.96, Est GFR (MDRD) Af Amer 48 L, Est GFR (MDRD) Non-Af 40 L, BUN/Creatinine Ratio 14.9, Glucose 114 H, Calcium 8.4 L Micro: Microbiology 11/14/22 17:55 Sputum, Expectorated/Coughed Gram Stain - Final 11/14/22 17:55 Sputum, Expectorated/Coughed Respiratory Culture - Final 11/14/22 11:00 Blood Culture (Wb) - Left Hand Blood Culture - Preliminary No growth in 48 hours. 11/14/22 10:47 Blood Culture (Wb) - Anticubital Left Blood Culture - Preliminary No growth in 48 hours. 11/14/22 16:56 Urine, Random Streptococcus pneumoniae Antigen (M - Final 11/14/22 16:56 Urine, Random Legionella Antigen - Final 11/14/22 11:58 Mucosa - Nasopharyngeal Respiratory Panel (PCR) - Final Physical Exam Const alert, oriented x3, no apparent distress and well nourished Constitutional Narrative: Very pleasant, elderly, -[place] female, overweight, lying in bed, lying in bed but awake, appears tired but comfortable and nontoxic General Appearance: cooperative HEENT normocephalic, head/scalp atraumatic, hearing grossly normal bilaterally and moist oral mucous membranes HEENT Narrative: Mallampati 2-3, no thrush Resp normal respiratory effort, no retractions, no use of accessory muscles and No clear to auscultation bilaterally Resp Narrative: Diminished but clear Auscultation: Negative for crackles, rhonchi or wheezes Cardio regular rate, regular rhythm, S1 normal heart sound, S2 normal heart sound, no murmurs, no rub, no gallops and no clicks GI normal to inspection, nondistended, normoactive bowel sounds, soft to palpation and non-tender Extremity no clubbing, cyanosis or edema Neuro oriented x3, moves all extremities and no focal motor deficits Speech: speech normal Psych affect normal Psych Narrative: Appropriately interactive, pleasant Assessment & Plan Assessment/Plan (1) Non-ST elevation [place] (NSTEMI): (2) Hypophosphatemia: (3) RBC microcytosis: (4) Debility: (5) Pneumonia: PLAN: Plan NSTEMI -Suspect type II related to pneumonia -Cardiac enzymes cycled and as [id number] -Continue aspirin -Continue Coreg 6.25 mg p.o. twice daily -Echocardiogram performed 11/14/2022 and demonstrated an EF of 65% with no wall motion abnormalities, bileaflet diffuse mitral valve thickening, mild eccentric mitral valve insufficiency, stage I diastolic dysfunction and pulmonary pressure of 34 mmHg -Total cholesterol is 115/LDL 60/HDL 31/triglycerides 118 -Cardiology following-appreciate input--> plan is for outpatient follow-up with probable noninvasive testing Left lower lobe pneumonia -Patient without cough or fever however CAT scan shows large infiltrate and bronchiectasis -No further fevers -Continue aggressive pulmonary toilet with incentive spirometry and Acapella -Scheduled DuoNebs and as needed albuterol -Patient did spike a temperature overnight of 101 with Tmax and is currently afebrile -Oxygen was also initiated and currently on 2 L -Wean as able -Will need ambulatory pulse ox at discharge -Continue Zosyn and will add po Zyvox since symptoms are persistent and oxygen saturations are not recovering as quickly as I would expect -Blood cultures are negative -Strep pneumo and Legionella antigens are negative -Sputum culture only showing oral stephani however patient is still having cough productive of sputum -Follow-up appointment with pulmonary medicine has been made as she will need follow-up imaging in 4 to [address] of her chest Debility -Patient was seen by physical and Occupational Therapy and they are recommending ongoing skilled facility at discharge -Patient is somewhat resistant to that disposition and will think about it and discuss further with her family -The other option would be going to stay with her daughter however she has been resistant to this as well. -Social work/case management consulted to assist with discharge planning and will evaluate further tomorrow Microcytosis -Iron studies were not consistent with iron deficiency -Patient could be sickle cell trait carrier -Could potentially check outpatient electrophoresis if further work-up required -Hemoglobin relatively stable Hypertension -Continue home amlodipine -Continue Coreg CKD stage IIIb -Renal functions back to her baseline with slight bump yesterday but did not meet criteria for DARIA -When compared to recent data her serum creatinine appears to be stable and at baseline -Stable -Repeat BMP in a.m. History of metastatic colon cancer -Diagnosed in 2014 -Underwent to chemotherapy sessions but did not tolerate well -Underwent extensive radiation at [facility] [place] -Had metastatic disease to her right lung at that time -CEA was 3.6 Seasonal allergies -Continue loratadine DVT prophylaxis -Continue Lovenox 40 mg subcu daily CODE STATUS -DNR CCA with no intubation as reviewed on admission Charges/Coding Visit Charges Inpatient E&M: 07894 Subs Hosp L2
--- NOTE | 2022-11-17 12:42 | PCM.HOSP.N ---
Hospitalist Note Discussed with patient and family that therapy is currently recommending [facility] facility at discharge. Patient is not wanting to do this. We did discuss the options that are available and her daughter is agreeable to take her home and we can set up home health care. Patient is agreeable to this so tomorrow I will discuss with case management/social work the plan for discharge to her daughters with home health care in the short-term with transition back to her home living arrangements as soon as she is stable. She should be medically stable for discharge tomorrow-11/18/2022 barring any changes in the next 24 hours.
[2022-11-18] VITALS (8 sets, daily range): BP systolic 132–151; BP diastolic 61–89; PULSE 65–73; RESP 15–18; TEMP 36.6–36.7; O2SAT 89–95
[2022-11-18] MEDS: Albuterol 2.5 MG/3 ML VIAL.NEB. INHALATION (02:58)
[2022-11-18 04:50] LABS: Absolute Lymphocyte Count 1.03 X10^3/uL (0.83-4.51); Absolute Neutrophil Count 4.5 X10^3/uL (2.0-7.7); Basophil# 0.03 X10^3/uL; Basophil% 0.5 % (0-1); Eosinophil# 0.13 X10^3/uL; Eosinophils% 2.1 % (0-5); Hematocrit 33.4 % (37-47); Hemoglobin 10.5 g/dL (12.0-15.0); Lymphocyte # 1.03 X10^3/ul (0.83-4.51); Lymphocyte % 16.6 % (19-41); Mean Corp Hgb Conc 31.4 g/dL (32-36); Mean Corpuscular Hgb 22.6 pg (27.0-32.0); Mean Platelet Vol. 10.7 fl (6.2-12.0); Monocyte# 0.49 X10^3/uL; Monocyte% 7.9 % (0-10); NRBC Flagged by Analyzer 0 % (0-5); Neutrophil # 4.49 X10^3/uL (2.7-7.7); Neutrophil % 72.4 % (47-70); Platelet Count 241 K/mm3 (150-450); RBC Distribution Width SD 38.9 fl (35.1-43.9); Red Blood Count 4.64 M/mm3 (4.2-5.4); White Blood Count 6.2 K/mm3 (4.4-11.0)
[2022-11-18 05:32] LABS: Anion Gap 8 (5-15); BUN 24 mg/dL (7-18); BUN/Creat Ratio 17.8 RATIO (10-20); Calcium,Total 8.5 mg/dL (8.5-10.1); Chloride 108 mmol/L (98-107); Creatinine, Serum 1.35 mg/dL (0.55-1.02); EST Glomerular Filtration Rate 40 mL/min (>60); Est Glom Filt Rate - Afr Amer 48 mL/min (>60); Estimated Creatinine Clearance 30.73 ml/min; Glucose 118 mg/dL (74-106); Potassium 3.3 mmol/L (3.5-5.1); Sodium Level 139 mmol/L (136-145)
[2022-11-18] MEDS: Ipratropium/Albuterol Sulfate 3 ML AMPUL.NEB INHALATION (07:08)
[2022-11-18] MEDS: Pantoprazole Sodium 20 MG Tablet PO (09:59)
[2022-11-18] MEDS: Enoxaparin 30 MG/0.3 ML Syringe SC (09:59)
[2022-11-18] MEDS: guaiFENesin 1,200 MG Tablet 1200 MG PO (09:59)
[2022-11-18] MEDS: Loratadine 10 MG Tablet PO (09:59)
[2022-11-18] MEDS: Aspirin E.C. 81 MG Tablet PO (10:00)
[2022-11-18] MEDS: Multivitamins,Therapeutic Tablet 1 TABLET PO (10:00)
[2022-11-18] MEDS: Potassium Chloride Oral Tablet 20 MEQ 40 MEQ PO (10:00)
[2022-11-18] MEDS: amLODIPine 5 MG Tablet PO (10:00)
[2022-11-18] MEDS: Carvedilol 6.25 MG Tablet PO (10:00)
[2022-11-18] MEDS: Linezolid 600 MG Tablet PO (10:00)
--- NOTE | 2022-11-18 13:30 | CASEMGMT ---
LEIGH ANN ALBERTS in to discuss discharge planning with patient and daughter. Per therapy, no therapy recommended at discharge. Patient will be going to daughters house for a few days for recovery. Patient and daughter declined C. LEIGH ANN ALBERTS did provide list of [facility] agencies in network with patient's insurance should she reconsider after discharge. LEIGH ANN ALBERTS instructed patient to follow-up with PCP. Patient and daughter voiced understanding, no further questions or concerns at this time.
--- NOTE | 2022-11-18 13:56 | PCM.DC.SUM ---
Providers Date of Admission: 11/14/22 Date of Discharge: 11/18/22 Primary Care Physician: Dr. Joel Beckman MD Consultations 11/14/22 10:40 Consult: Cardiology Routine Consulting Provider: Don Victor Reason for Consult: Chest Pain EMERGENT Consult: No MD Notified: Yes Date Notified: 11/14/22 Time Notified: 08:51 Method of Notification: Text Reason For Visit: NSTEMI Diagnosis Discharge Diagnosis (1) Non-ST elevation NV (NSTEMI): Status: Acute Code(s): I21.4 - Non-ST elevation (NSTEMI) myocardial infarction (2) Hypophosphatemia: Status: Resolved Code(s): E83.39 - Other disorders of phosphorus metabolism (3) RBC microcytosis: Status: Acute Code(s): R71.8 - Other abnormality of red blood cells (4) Debility: Status: Acute Code(s): R53.81 - Other malaise (5) Pneumonia: Status: Acute Code(s): J18.9 - Pneumonia, unspecified organism Medications at Discharge Home Medications multivitamin with folic acid 400 mcg tablet (Thera) 1 tab PO DAILY 05/12/13 amlodipine 5 mg tablet 5 mg PO DAILY 02/14/15 loratadine 10 mg tablet (Allergy Relief (loratadine)) 10 mg PO DAILY 02/14/15 aspirin 81 mg tablet,delayed release 81 mg PO DAILY@0800 #0 tabs 11/18/22 carvedilol 6.25 mg tablet 6.25 mg PO BID #60 tabs 11/18/22 guaifenesin 1,200 mg tablet, extended release 12 hr (Mucus Relief ER) 1,200 mg PO BID #0 tabs 11/18/22 levofloxacin 750 mg tablet 750 mg PO Q48H #4 tabs 11/18/22 oxycodone 5 mg tablet 2.5 mg PO Q6H PRN PRN Pain Score 6-10 3 days #12 tabs 11/18/22 Hospital Course Operations None Procedures 2-D Echocardiogram, EKG and - (CTA of the chest) Summary of Care Provided Minutes Spent on Discharge: 39 Hospital Course: DEV CONNOLLY, is a 87 F who presented to the emergency department at [facility] on 11/14/2022 with a chief complaint of chest pain.? It started more of a pleuritic pain on the left side of her chest underneath her breast with no radiation, associated diaphoresis, nausea or vomiting.? She did state prior to it she felt some indigestion and gas pains.? She tried to take some gas pills without any improvement so she came to the emergency department because the pain would not go away. The patient also does have a history of chest radiation which was done for metastatic colon cancer remotely.? Per chart review it appears that she was diagnosed with metastatic colon cancer in 2014 so I suspect her radiation was at least 6 to 7 years ago.? Her chest pain was not reproducible with palpation of the chest wall or movement at the time of my examination however she did report some increased pain with movement prior to arrival. Vital signs at time of presentation showed temperature of 98.2, blood pressure 161/92, heart rate 67, respiratory rate was 24 and oxygen saturation was anywhere between 93 and 99% on room air.? Her CBC was unimpressive with a normal hemoglobin however there was microcytosis present and she had mild thrombocytopenia with a platelet count of 123,000.? Chemistry panel showed mild hyponatremia at 132, her BUN and serum creatinine were elevated at 20 and 1.38 respectively however this appears to be close to her baseline.? Procalcitonin was 0.13.? Her initial troponin was 418.? Chest x-ray was performed and was suggestive of a moderate wedge-shaped opacity in the left lateral midlung for which a CT a of her chest was performed.? CTA of her chest showed no evidence of pulmonary embolism however moderate consolidation in the periphery of the left lung concerning for pneumonia as well as a mild left parapneumonic effusion and mild lymphadenopathy. She was admitted to the medical floor and broad-spectrum antibiotics were initiated with Zosyn to cover Pseudomonas. We assessed the CEA given her history and it was found to be normal. Blood cultures were obtained and negative. Sputum culture had no growth. I reviewed the CAT scan with pulmonology and they felt that this was likely infectious infiltrate and recommended ongoing treatment. She initially admitted for troponin elevation as she was not requiring any supplemental oxygen and feeling well otherwise. Cardiology evaluated the patient and an echocardiogram was obtained and found to have no wall motion abnormalities with an EF of 65%, diffuse bileaflet mitral valve thickening, pulmonary artery systolic pressure of 34 mmHg and stage I diastolic dysfunction. Conservative management was recommended as her troponin was trending down and she will follow-up with cardiology office for probable noninvasive testing once her acute issues are addressed and treatments are completed. This appointment has been made for 12/11/2022. She did develop fever the night following her admission which trended down slowly. She also required some supplemental oxygen and maximal of 2 L during this time as well. She was able to be weaned off oxygen prior to discharge and we did ambulatory pulse ox at which time she was found to desat no further than 92% with exertion on room air. She was seen by physical and Occupational Therapy and initially they recommended skilled facility at baseline. The patient was adamant that she was not going to a [facility] but did indicate she would go get home health with her daughter. She was reevaluated on the day of discharge by physical and Occupational Therapy and they felt she was safe to discharge home with no assistive devices for ambulation and no further therapy. She is going to go and stay with her daughter for a few days until she gets her strength up but she has quite a bit of responsibility at home. She was able to be discharged home in stable condition on 11/18/2022. She will complete her antibiotic course with Levaquin 750 mg every 48 hours for another 8 days. She will need repeat imaging in the next 4 to 6 weeks and follow-up with pulmonary medicine has been made for 12/09/2022. She is also to follow-up with her primary care physician this has been set up for 11/21/2022. Discharge diagnoses: NSTEMI Left lower lobe pneumonia Debility Microcytosis Hypertension CKD stage IIIb History of metastatic colon cancer Seasonal allergies Physical Exam Const alert, oriented x3, no apparent distress and well nourished Constitutional Narrative: Very pleasant, elderly, -English female, overweight, sitting up in the chair at the bedside, family at the bedside, patient appears comfortable and nontoxic, on room air General Appearance: cooperative, comfortable, well kempt and well developed Orientation / Consciousness: awake, oriented to person, oriented to place and oriented to time Exam Limitations: no limitations Nutritional Appearance: overweight HEENT normocephalic, head/scalp atraumatic, hearing grossly normal bilaterally and moist oral mucous membranes HEENT Narrative: Mallampati is 2, no thrush Eyes PERRL, EOMs intact bilaterally and conjunctivae normal Eyes Narrative: No scleral icterus Neck no lymphadenopathy, supple, no JVD and no carotid bruits Resp normal respiratory effort, no retractions, no use of accessory muscles and No clear to auscultation bilaterally Resp Narrative: Few inspiratory crackles on the left lateral mid lung field Auscultation: crackles; Negative for rhonchi or wheezes Cardio regular rate, regular rhythm, S1 normal heart sound, S2 normal heart sound, no murmurs, no rub, no gallops and no clicks GI normal to inspection, nondistended, normoactive bowel sounds, soft to palpation and non-tender Extremity no clubbing, cyanosis or edema Skin no rashes or lesions noted, no wounds, skin turgor normal and no jaundice Neuro oriented x3, CN's II-XII intact bilaterally, moves all extremities, no focal motor deficits and no sensory deficits noted Neuro Narrative: Mild generalized weakness however patient has normal gait pattern with no assistive device. Speech: speech normal Psych affect normal Psych Narrative: Appropriately interactive, pleasant Weight / BMI Weight Weight: 84 kg Body Mass Index (BMI) 28.1 ABG / Lab / Microbiology Data Result Diagrams: 11/18/22 04:40 11/18/22 04:40 Laboratory: Laboratory Results - last 24 hr 11/18/22 04:40: WBC 6.2, RBC 4.64, Hgb 10.5 L, Hct 33.4 L, MCV 72.0 L, MCH 22.6 L, MCHC 31.4 L, RDW Std Deviation 38.9, RDW Coeff of Aylin 15.0 H, Plt Count 241, MPV 10.7, Immature Gran % (Auto) 0.500, Neut % (Auto) 72.4 H, Lymph % (Auto) 16.6 L, Real % (Auto) 7.9, Eos % (Auto) 2.1, Baso % (Auto) 0.5, Absolute Neuts (auto) 4.5, Absolute Lymphs (auto) 1.03, Nucleated RBC % 0 11/18/22 04:40: Sodium 139, Potassium 3.3 L, Chloride 108 H, Carbon Dioxide 23.0, Anion Gap 8, BUN 24 H, Creatinine 1.35 H, Estim Creat Clear Calc 30.73, Est GFR (MDRD) Af Amer 48 L, Est GFR (MDRD) Non-Af 40 L, BUN/Creatinine Ratio 17.8, Glucose 118 H, Calcium 8.5 Microbiology: Microbiology 11/14/22 17:55 Sputum, Expectorated/Coughed Gram Stain - Final 11/14/22 17:55 Sputum, Expectorated/Coughed Respiratory Culture - Final 11/14/22 11:00 Blood Culture (Wb) - Left Hand Blood Culture - Preliminary No growth in 48 hours. 11/14/22 10:47 Blood Culture (Wb) - Anticubital Left Blood Culture - Preliminary No growth in 48 hours. 11/14/22 16:56 Urine, Random Streptococcus pneumoniae Antigen (M - Final 11/14/22 16:56 Urine, Random Legionella Antigen - Final 11/14/22 11:58 Mucosa - Nasopharyngeal Respiratory Panel (PCR) - Final D/C Instructions Discharge Diet: Low fat / Low cholesterol Discharge Activity: Return to Normal Activity and May Shower Meaningful Use Info Meaningful Use Diagnoses (Choose all that apply): None applicable Discharge Plan Admission Admit Date/Time: 11/14/22 08:48 Primary Reason for Your Visit: Left-sided atypical chest pain Attending Provider: Dona Garcia Primary Care Provider: Joel Beckman Consulting Providers: Don Victor Instructions Additional Instructions / Restrictions: 1. Please follow-up with pulmonary medicine and cardiology as directed below Discharge Orders/Prescriptions Prescriptions: New carvedilol 6.25 mg Tablet 6.25 mg PO BID Qty: 60 1RF aspirin 81 mg Tablet,Delayed Release (Dr/Ec) 81 mg PO DAILY@0800 Qty: 0 0RF oxycodone 5 mg Tablet 2.5 mg PO Q6H PRN PRN (Reason: Pain Score 6-10) 3 Days Qty: 12 0RF Mucus Relief ER 1,200 mg Tablet Extended Release 12hr 1,200 mg PO BID Qty: 0 0RF levofloxacin 750 mg tablet 750 mg PO Q48H Qty: 4 0RF Continued multivitamin with folic acid [Thera] 1 TABLET tablet 1 tab PO DAILY Label Comments: MINERAL SUPPLEMENT amlodipine 5 MG tablet 5 mg PO DAILY loratadine [Allergy Relief (loratadine)] 10 MG tablet 10 mg PO DAILY Referrals / Follow Up: Andrea Vasquez DO [Med Staff - Active Staff] - 12/09/22 8:15 am Joel Beckman MD [Primary Care Provider] - 11/21/22 2:40 pm Gisela Lucio PA [Med Staff - Adv Practice Prof] - 12/11/22 1:00 pm Disposition Disposition (needs filled in before D/C Order can be placed): Home, Self Care Charges/Coding Visit Charges Inpatient E&M: 07705 Disch Hosp >30min
--- NOTE | 2022-11-18 15:24 | PHA.DC.MC ---
Pharmacy Service has performed discharge medication reconciliation and counseling for this patient. 1. ASPIRIN 81MG PO BREAKFAST 2. CARVEDILOL 6.25MG PO BID 3. OXYCODONE 2.5MG PO Q6H PRN SEVERE PAIN 4. GUAIFENESIN 1200MG PO BID 5. LEVOFLOXACIN 750MG PO Q48H FOR 4 DOSES The patient's discharge medication list was reviewed for discrepancies and discrepancies were resolved. Home Medications multivitamin with folic acid 400 mcg tablet (Thera) 1 tab PO DAILY 05/12/13 amlodipine 5 mg tablet 5 mg PO DAILY 02/14/15 loratadine 10 mg tablet (Allergy Relief (loratadine)) 10 mg PO DAILY 02/14/15 aspirin 81 mg tablet,delayed release 81 mg PO DAILY@0800 #0 tabs 11/18/22 carvedilol 6.25 mg tablet 6.25 mg PO BID #60 tabs 11/18/22 guaifenesin 1,200 mg tablet, extended release 12 hr (Mucus Relief ER) 1,200 mg PO BID #0 tabs 11/18/22 levofloxacin 750 mg tablet 750 mg PO Q48H #4 tabs 11/18/22 oxycodone 5 mg tablet 2.5 mg PO Q6H PRN PRN Pain Score 6-10 3 days #12 tabs 11/18/22 The patient was counseled on the following discharge medications and changes in medications for homegoing were reviewed. The Reason for Use, instructions for use, and potential side effects were reviewed for all new medications. The patient's questions regarding all of their medications were answered. The patient was able to verbally demonstrate an understanding of their discharge medications.
== END 2022-11-18 16:14 | disposition home or self-care (01) | DRG 194 ==
LOC: ED 08:01 → PCU 09:38
PROVIDERS: Admitting Provider Internal Medicine; Emergency Provider Emergency Medicine; PCP Family Medicine; Visit Provider Internal Medicine
DX: J18.9 Pneumonia, unspecified organism (principal); J47.0 Bronchiectasis with acute lower respiratory infection; E83.39 Other disorders of phosphorus metabolism; N18.32 Chronic kidney disease, stage 3b; I12.9 Hypertensive chronic kidney disease with stage 1 through stage 4 chronic kidney disease, or unspecified chronic kidney disease; J30.2 Other seasonal allergic rhinitis; R53.81 Other malaise; R71.8 Other abnormality of red blood cells; E66.3 Overweight; Z68.28 Body mass index [BMI] 28.0-28.9, adult; Z66 Do not resuscitate; Z79.01 Long term (current) use of anticoagulants; Z79.82 Long term (current) use of aspirin; Z79.899 Other long term (current) drug therapy; Z85.038 Personal history of other malignant neoplasm of large intestine; Z85.118 Personal history of other malignant neoplasm of bronchus and lung; Z92.3 Personal history of irradiation; Z87.891 Personal history of nicotine dependence
CPT/HCPCS: 36415; 71045; 71275; 80048; 80053; 80061; 82378; 82728; 83540; 83550; 83735; 84100; 84145; 84443; 84484; 85025; 85027; 87040; 87070; 87205; 87449; 87633; 87641; 93005; 93306; 94640; 94668; 97110; 97116; 97162; 97166; 97530; 97535; 99252; 99285; J7040; J7050; J7120; Q9967; A4216; G0463